=== PATIENT | male | born 1955 | race African-American/Black ===

== ENCOUNTER → 2016-06-26 | Outpatient (CLI) | payer OTHER, MEDICAID ==
[2016-04-06 05:59] VITALS: BP 135/82
--- NOTE | 2016-06-26 19:29 | RAD ---
HISTORY: neck pain Study: C-spine series Comparison: None Findings: There is mild to moderate disc space narrowing throughout with large marginal osteophytes throughout the lower cervical region. No fracture or subluxation is seen. The atlantoaxial joint and preverteb ral soft tissues are normal. IMPRESSION: Moderate degenerative disk changes throughout the mid and lower cervical spine with no acute bony ab normality seen. Reported By:
== END ==
LOC: RAD 15:21
PROVIDERS: ATTEND Nurse Practitioner Family
DX: M54.2 Cervicalgia (principal)
CPT/HCPCS: 72040

== ENCOUNTER → 2016-07-02 | Outpatient (CLI) | payer OTHER, MEDICAID ==
[2016-04-06 05:59] VITALS: BP 135/82
--- NOTE | 2016-07-02 13:27 | RAD ---
HISTORY: Left shoulder pain and stiffness Study: Left shoulder three view Comparison: November 03, 2014 Findings: There is deformity of the distal clavicle likely due to an old healed fracture. 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 The scapula, proximal humerus, and left upper ri bs are intact. There is degenerative joint disease in the glenohumeral joint. IMPRESSION: Old posttraumatic changes distal clavicle, a chromium Degenerative joint disease glenohumeral joint Reported By:
== END ==
LOC: RAD 11:03
PROVIDERS: ATTEND Nurse Practitioner Family
DX: M25.512 Pain in left shoulder (principal); M19.012 Primary osteoarthritis, left shoulder
CPT/HCPCS: 73030

== ENCOUNTER 2016-08-15 08:25 | Emergency (ER) | payer OTHER, MEDICAID ==
[2016-08-15 08:35] VITALS: BP 141/80; BMI 21.2
--- NOTE | 2016-08-15 08:54 | DR.GENAD ---
HPI - PCP Primary Care Physician: KE - HPI Comment HPI Comment: ABDOMEN HURTING AND PATIENT IS ATAXIC FOR 5 DAYS. WORSE TODAY. NO FEVER. - Complaint/Symptoms Chief Complaint Doctors Comments: ABDOMINAL PAIN Chief Complaint:: MY STOMACH HAS BEEN HURTING FOR 5 DAYS SINCE BIRTHDAY DEMOCRAT WHERE I DRANK SOME FRUIT PUNCH. JUST HURTS. NO N/V WITH STOMACH - Nurses notes reviewed Nurses Notes Review: Yes - Source History Provided: Patient - Mode of Arrival Mode of Arrival: Ambulatory - Timing Onset of Chief Complaint: 08/10/16 Came on: Suddenly - Duration Duration: Constant Duration: Days - Severity Severity: Moderate PMH - PMH Past Medical History: Yes Past Medical History: Seizures Past Surgical History: Yes Surgical History: Ortho Surgery - Family History History of Family Medical Conditions: Yes Family Medical History: [place], Coronary Artery Disease, Heart Failure, Hypertension - Social History Does patient currently use any type of tobacco product: Yes Have you used tobacco products in the last 12 months: Yes Type of Tobacco Use: Smokeless How many years tobacco product used: 20 Does any household member use tobacco: Yes Alcohol Use: None Do you use any recreational Drugs:: No Lives With: Family Lives Where: Home - infectious screening In the last 2 months have you had wt loss of >10#?: NO Have you had fever, night sweats or hemotysis?: No Have you traveled outside the country in the last 6 months?: No Isolation: Standard ROS - Review of Systems Constitutional: No Symptoms Reported Eyes: No Symptoms Reported ENTM: No Symptoms Reported Respiratoy: No Symptoms Reported Cardiovascular: No Symptoms Reported Genitourinary: No Symptoms Reported Neurological: No Symptoms Reported Musculoskeletal: No Symptoms Reported Integumentary: No Symptoms Reported Hematologic/Lymphatic: No Symptoms Reported Endocrine: No Symptoms Reported All Other Systems: Reviewed and Negative PE - Vital Signs Vitals: Temperature 97.3 F Pulse Rate 73 Respiratory Rate 19 Blood Pressure 141/80 O2 Sat by Pulse Oximetry 98 - General Limitations: No Limitations General Appearance: Alert - Head Head Exam: Normal Inspection - Eyes Eye exam: Normal Appearance - ENT ENT Exam: Normal External Ear Exam External Ear Exam: Normal External Inspection TM/Canal Exam: Bilateral Normal Nose Exam: Normal Nose Exam Mouth Exam: Normal Inspection Throat Exam: Normal Inspection - Neck Neck Exam: Trachea Midline - Chest Chest Inspection: Symmetric Chest Wall Rise - Respiratory Respiratory Exam: Normal Lung Sounds Bilat Respiratory Exam: Bilateral Clear to Auscultation - Cardiovascular Cardiovascular Exam: Regular Rate, Normal Rhythm, Normal Heart Sounds - Extremities Extremities Exam: Normal Inspection - Back Back Exam: Normal Inspection - Neurologic Neurological Exam: Alert, Oriented X3 - Psychiatric Psychiatric Exam: Normal Affect, Normal Mood - Skin Skin Exam: Normal Color MDM - Additional Information Additional Information Obtained From: Old Records (PAIN) - Differential Diagnosis Differential Diagnosis: ATAXIAN ABDOMINAL PAIN, DILANTIN TOXICITY, GASTRITIS, GASTRENTERITIS Course - Treatment Treatment: SEE ORDER. - Reevaluation 1st: Resolved - Education/Counseling Education/Counseling: Patient, Education Educated On: Diagnosis, Needs for Follow Up ROR - Labs Reviewed Laboratory Results Reviewed?: Yes Result Diagrams: 08/15/16 09:10 08/15/16 09:10 Laboratory: WBC 3.9 X10^3/uL (3.6-10.0) 08/15/16 09:10 RBC 4.34 X10^6/uL (4.7-6.0) L 08/15/16 09:10 Hgb 11.6 g/dL (13.5-18.0) L 08/15/16 09:10 Hct 34.7 % (42.0-54.0) L 08/15/16 09:10 MCV 79.9 fL (80.0-100.0) L 08/15/16 09:10 MCH 26.6 pg (27.0-34.0) L 08/15/16 09:10 MCHC 33.3 g/dL (33.0-35.0) 08/15/16 09:10 RDW 15.1 % (11.6-16.5) 08/15/16 09:10 Plt Count 185 X10^3/uL (150.0-450.0) 08/15/16 09:10 MPV 8.8 fL (7.4-11.0) 08/15/16 09:10 Neut % 48.5 % (42.0-75.0) 08/15/16 09:10 Lymph % 37.1 % (21.0-51.0) 08/15/16 09:10 [place] % 8.8 % (0.0-13.0) 08/15/16 09:10 Eos % 4.7 % (0.9-2.9) H 08/15/16 09:10 Baso % 0.9 % (0.2-1.0) 08/15/16 09:10 Neut # 1.9 x10^3/uL (2.2-4.8) L 08/15/16 09:10 Lymph # 1.4 X10^3/uL (1.3-2.9) 08/15/16 09:10 [place] # 0.3 x10^3/uL (0.3-0.8) 08/15/16 09:10 Eos # 0.2 x10^3/uL (0.0-0.2) 08/15/16 09:10 Baso # 0.0 X10^3/uL (0.0-0.1) 08/15/16 09:10 Absolute Nucleated RBC 0.1 /100WBC 08/15/16 09:10 Sodium 142 mmol/L (136-145) 08/15/16 09:10 Corrected Sodium TNP 08/15/16 09:10 Potassium 3.6 mmol/L (3.5-5.1) 08/15/16 09:10 Chloride 105 mmol/L (98-107) 08/15/16 09:10 Carbon Dioxide 29.4 mmol/L (21-32) 08/15/16 09:10 BUN 10 mg/dL (7-18) 08/15/16 09:10 Creatinine 1.07 mg/dL (0.70-1.30) 08/15/16 09:10 Est GFR (MDRD) Af Amer > 60 (>60) 08/15/16 09:10 Est GFR (MDRD) Non-Af > 60 (>60) 08/15/16 09:10 Glucose 95 mg/dL (65-99) 08/15/16 09:10 Calcium 7.9 mg/dL (8.5-10.1) L 08/15/16 09:10 Corrected Calcium TNP 08/15/16 09:10 Total Bilirubin 0.20 mg/dL (0.2-1.0) 08/15/16 09:10 AST 32 Units/L (15-37) 08/15/16 09:10 ALT 34 Units/L (12-78) 08/15/16 09:10 Alkaline Phosphatase 96 Units/L (46-116) 08/15/16 09:10 Total Protein 7.4 g/dL (6.4-8.2) 08/15/16 09:10 Albumin 3.7 g/dL (3.4-5.0) 08/15/16 09:10 Globulin 3.7 g/dL (2.5-4.5) 08/15/16 09:10 Albumin/Globulin Ratio 1.0 Ratio (1.1-2.1) L 08/15/16 09:10 Amylase 79 Units/L (25-115) 08/15/16 09:10 Lipase 76 Units/L (73-393) 08/15/16 09:10 Specimen Type Clean catch urine 08/15/16 09:37 Urine Color Yellow (YELLOW) 08/15/16 09:37 Urine Appearance Clear (CLEAR) 08/15/16 09:37 Urine pH 6.5 (5.0 - 8.0) 08/15/16 09:37 Ur Specific [place] 1.005 (1.000-1.030) 08/15/16 09:37 Urine Protein Negative (NEGATIVE) 08/15/16 09:37 Urine Glucose (UA) Negative (NEGATIVE) 08/15/16 09:37 Urine Ketones Negative (NEGATIVE) 08/15/16 09:37 Urine Occult Blood Negative (NEGATIVE) 08/15/16 09:37 Urine Nitrite Negative (NEGATIVE) 08/15/16 09:37 Urine Bilirubin Negative (NEGATIVE) 08/15/16 09:37 Urine Urobilinogen Normal (NORMAL) 08/15/16 09:37 Ur Leukocyte Esterase Negative (NEGATIVE) 08/15/16 09:37 Urine RBC 0-2 /HPF (NEGATIVE) 08/15/16 09:37 Urine WBC 0-2 /HPF (NEGATIVE) 08/15/16 09:37 Ur Squamous Epith Cells Negative /HPF (NEGATIVE) 08/15/16 09:37 Urine Bacteria Negative /HPF (NEGATIVE) 08/15/16 09:37 Ur Culture Indicated? No/not indicated 08/15/16 09:37 Phenytoin 31.1 ug/mL (10-20) H* 08/15/16 09:10 Phenobarbital 23.9 ug/mL (15-40) 08/15/16 09:10 H. pylori IgG Antibody Positive (NEGATIVE) A 08/15/16 09:40 - XRAY XRAY Interpreted by: Radiologist XRAY Findings: REPORT DISCUSS WITH PATIENT. - Diagnosis Discharge Problem: Helicobacter positive gastritis Dilantin toxicity Qualifiers: Encounter type: initial encounter Injury intent: accidental or unintentional Qualified Code(s): T42.0X1A - Poisoning by hydantoin derivatives, accidental ( unintentional), initial encounter Abdominal pain Qualifiers: Abdominal location: generalized Qualified Code(s): R10.84 - Generalized abdominal pain - Discharge Plan Disposition: HOME, SELF-CARE Condition: Stable Prescriptions: Ranitidine HCl [ZANTAC TAB 150 MG *] 150 mg PO BID #60 tab - Follow ups/Referrals Follow ups/Referrals: MILAGRO ABDALLA [Primary Care Provider] - 3 days - Instructions Instructions: Phenytoin Toxicity, Helicobacter Pylori Antibodies Test, Gastritis, Adult, [id number] Additional Instructions: RETURN TO ED IF WORSE. RETURN TO ED ON 08/17/2016 FOR DILANTIN RECHECK. HOLD DILANTIN TILL IT IS RECHECK IN ED. HAVE YOUR DR. TO TREAT YOU FOR H PYLORI IN THE OFFICE.
[2016-08-15 09:42] LABS: ALANINE AMINOTRANSFERASE 34 Units/L (12-78); ALBUMIN 3.7 g/dL (3.4-5.0); ALKALINE PHOSPHATASE 96 Units/L (46-116); ASPARTATE AMINO TRANSFERASE 32 Units/L (15-37); BLOOD UREA NITROGEN 10 mg/dL (7-18); CALCIUM 7.9 mg/dL (8.5-10.1); CARBON DIOXIDE 29.4 mmol/L (21-32); CHLORIDE 105 mmol/L (98-107); CREATININE 1.07 mg/dL (0.70-1.30); GLUCOSE 95 mg/dL (65-99); SODIUM 142 mmol/L (136-145); TOTAL PROTEIN 7.4 g/dL (6.4-8.2); eGFR BLACK RACES > 60 (>60); eGFR NON BLACK RACES > 60 (>60)
[2016-08-15 09:44] LABS: BASOPHILS % (AUTO) 0.9 % (0.2-1.0); EOSINOPHILS # (AUTO) 0.2 x10^3/uL (0.0-0.2); EOSINOPHILS % (AUTO) 4.7 % (0.9-2.9); HEMATOCRIT 34.7 % (42.0-54.0); HEMOGLOBIN 11.6 g/dL (13.5-18.0); LYMPHOCYTES # (AUTO) 1.4 X10^3/uL (1.3-2.9); LYMPHOCYTES % (AUTO) 37.1 % (21.0-51.0); MEAN CORPUSCULAR HEMOGLOBIN 26.6 pg (27.0-34.0); MEAN CORPUSCULAR HGB CONC 33.3 g/dL (33.0-35.0); MEAN CORPUSCULAR VOLUME 79.9 fL (80.0-100.0); MEAN PLATELET VOLUME 8.8 fL (7.4-11.0); MONOCYTES # (AUTO) 0.3 x10^3/uL (0.3-0.8); MONOCYTES % (AUTO) 8.8 % (0.0-13.0); NEUTROPHILS # (AUTO) 1.9 x10^3/uL (2.2-4.8); NEUTROPHILS % (AUTO) 48.5 % (42.0-75.0); PLATELET COUNT 185 X10^3/uL (150.0-450.0); RED BLOOD COUNT 4.34 X10^6/uL (4.7-6.0); RED CELL DISTRIBUTION WIDTH 15.1 % (11.6-16.5); WHITE BLOOD COUNT 3.9 X10^3/uL (3.6-10.0)
[2016-08-15 09:51] LABS: BILIRUBIN,URINE NEGATIVE (NEGATIVE); BLOOD/HEMOGLOBIN,URINE NEGATIVE (NEGATIVE); GLUCOSE, URINE NEGATIVE (NEGATIVE); KETONES,URINE NEGATIVE (NEGATIVE); LEUKOCYTE ESTERASE ,URINE NEGATIVE (NEGATIVE); NITRITES,URINE NEGATIVE (NEGATIVE); PH,URINE 6.5 (5.0 - 8.0); PROTEIN,URINE NEGATIVE (NEGATIVE); UROBILINOGEN,URINE NORMAL (NORMAL)
[2016-08-15] MEDS ORDERED: PEPCID TAB 20 MG PO ONE (10:14)
[2016-08-15 10:15] LABS: APPEARANCE,URINE CLEAR (CLEAR); COLOR,URINE YELLOW (YELLOW)
[2016-08-15 10:16] LABS: BACTERIA,URINE NEGATIVE /HPF (NEGATIVE); RBC,URINE 0-2 /HPF (NEGATIVE); SQUAMOUS EPITHELIAL CELL,UR NEGATIVE /HPF (NEGATIVE)
[2016-08-15] MEDS ORDERED: PEPCID TAB 20 MG ONE (10:16)
--- NOTE | 2016-08-15 10:50 | RAD ---
HISTORY: Abdominal pain Study: Flat and upright abdomen, PA chest Comparison: None Findings: There is a dilated loop of bowel within the mid abdomen possibly representing sigmoid colon. There i s, however, no proximal colonic dilatation or significant small bowel dilatation. There is a moderat sharlene large amount of stool within the right colon. No pneumoperitoneum is identified. No abnormal mas ses or abnormal calcifications are identified. The chest is clear. Extensive postsurgical and posttr aumatic changes are present in the right hemipelvis. IMPRESSION: Nonspecific bowel gas pattern Lungs clear Reported By:
[2016-08-15] MEDS ORDERED: NS 1000 ML 1,000 ML ONE (11:56)
== END 2016-08-15 12:31 | disposition home or self-care (01) ==
LOC: ER 08:39
DX: R10.84 Generalized abdominal pain (principal); B96.81 Helicobacter pylori [H. pylori] as the cause of diseases classified elsewhere; T42.0X1A Poisoning by hydantoin derivatives, accidental (unintentional), initial encounter
CPT/HCPCS: 36415; 74022; 80053; 80184; 80185; 81001; 82150; 83690; 85025; 86677; 96365; 99282; 99283; A4222

== ENCOUNTER 2016-08-18 08:50 | Emergency (ER) | payer OTHER, MEDICAID ==
[2016-08-18 08:56] VITALS: BP 116/80; BMI 21.2
--- NOTE | 2016-08-18 09:09 | DR.GENAD ---
HPI - PCP Primary Care Physician: nfd - Complaint/Symptoms Chief Complaint Doctors Comments: I agree with statement. Patient states that this is the second time that he has had to come to the ED for dizziness, he thinks that the women he plans to is trying to kill him that why he is dizzy. Chief Complaint:: patient stated he was a t the club and was drinking some punch and he started feeling bad. about 8 hours ago - Source History Provided: Patient - Mode of Arrival Mode of Arrival: Ambulatory - Timing Onset of Chief Complaint: 08/17/16 PMH - PMH Past Medical History: Yes Past Medical History: Seizures Past Surgical History: Yes Surgical History: Ortho Surgery - Family History History of Family Medical Conditions: Yes Family Medical History: [place], Coronary Artery Disease, Heart Failure, Hypertension - Social History Does patient currently use any type of tobacco product: No Have you used tobacco products in the last 12 months: No Type of Tobacco Use: None Does any household member use tobacco: No Alcohol Use: None Do you use any recreational Drugs:: No Lives With: Family Lives Where: Home - infectious screening In the last 2 months have you had wt loss of >10#?: NO Have you had fever, night sweats or hemotysis?: No Have you traveled outside the country in the last 6 months?: No Isolation: Standard ROS - Review of Systems Eyes: No Symptoms Reported ENTM: No Symptoms Reported Respiratoy: No Symptoms Reported Cardiovascular: No Symptoms Reported Gastrointestinal/Abdominal: No Symptoms Reported Genitourinary: No Symptoms Reported Neurological: No Symptoms Reported Musculoskeletal: No Symptoms Reported Integumentary: No Symptoms Reported Hematologic/Lymphatic: No Symptoms Reported Endocrine: No Symptoms Reported Psychiatric: No Symptoms Reported All Other Systems: Reviewed and Negative PE - Vital Signs Vitals: Temperature 98.7 F Pulse Rate 80 Respiratory Rate 16 Blood Pressure 116/80 O2 Sat by Pulse Oximetry 100 - General General Appearance: Alert, In No Apparent Distress, Appears Intoxicated - Head Head Exam: Normal Inspection, Atraumatic - Eyes Eye exam: Normal Appearance, PERRL, EOMI - ENT ENT Exam: Normal Exam External Ear Exam: Normal External Inspection TM/Canal Exam: Bilateral Normal Nose Exam: Normal Nose Exam Mouth Exam: Normal Inspection Throat Exam: Normal Inspection - Neck Neck Exam: Normal Inspection, Full ROM - Chest Chest Inspection: Normal Inspection - Respiratory Respiratory Exam: Normal Lung Sounds Bilat Respiratory Exam: Bilateral Clear to Auscultation - Cardiovascular Cardiovascular Exam: Regular Rate, Normal Rhythm - Abdominal Exam Abdominal Exam: Normal Inspection, Normal Bowel Sounds Abdominal Tenderness: negative: RUQ, RLQ, LUQ, LLQ, Epigastrium, Suprapubic, Diffuse, Mild, Moderate, Severe, Other - Extremities Extremities Exam: Normal Inspection, Full ROM - Neurologic Neurological Exam: Alert, Oriented X3, CN II-XII Intact - Psychiatric Psychiatric Exam: Normal Affect - Skin Skin Exam: Warm, Dry Course - Reevaluation 1st: Improved ROR - Labs Reviewed Laboratory Results Reviewed?: Yes (low potassium) Result Diagrams: 08/18/16 09:18 08/18/16 09:18 Laboratory: WBC 3.4 X10^3/uL (3.6-10.0) L 08/18/16 09:18 RBC 4.03 X10^6/uL (4.7-6.0) L 08/18/16 09:18 Hgb 10.7 g/dL (13.5-18.0) L 08/18/16 09:18 Hct 31.6 % (42.0-54.0) L 08/18/16 09:18 MCV 78.4 fL (80.0-100.0) L 08/18/16 09:18 MCH 26.6 pg (27.0-34.0) L 08/18/16 09:18 MCHC 34.0 g/dL (33.0-35.0) 08/18/16 09:18 RDW 14.9 % (11.6-16.5) 08/18/16 09:18 Plt Count 175 X10^3/uL (150.0-450.0) 08/18/16 09:18 MPV 8.3 fL (7.4-11.0) 08/18/16 09:18 Neut % 43.3 % (42.0-75.0) 08/18/16 09:18 Lymph % 42.1 % (21.0-51.0) 08/18/16 09:18 [place] % 8.8 % (0.0-13.0) 08/18/16 09:18 Eos % 4.7 % (0.9-2.9) H 08/18/16 09:18 Baso % 1.1 % (0.2-1.0) H 08/18/16 09:18 Neut # 1.5 x10^3/uL (2.2-4.8) L 08/18/16 09:18 Lymph # 1.4 X10^3/uL (1.3-2.9) 08/18/16 09:18 [place] # 0.3 x10^3/uL (0.3-0.8) 08/18/16 09:18 Eos # 0.2 x10^3/uL (0.0-0.2) 08/18/16 09:18 Baso # 0.0 X10^3/uL (0.0-0.1) 08/18/16 09:18 Absolute Nucleated RBC 0.0 /100WBC 08/18/16 09:18 Sodium 141 mmol/L (136-145) 08/18/16 09:18 Corrected Sodium 141 mmol/L (136-145) 08/18/16 09:18 Potassium 3.2 mmol/L (3.5-5.1) L 08/18/16 09:18 Chloride 104 mmol/L (98-107) 08/18/16 09:18 Carbon Dioxide 28.2 mmol/L (21-32) 08/18/16 09:18 BUN 3 mg/dL (7-18) L 08/18/16 09:18 Creatinine 0.91 mg/dL (0.70-1.30) 08/18/16 09:18 Est GFR (MDRD) Af Amer > 60 (>60) 08/18/16 09:18 Est GFR (MDRD) Non-Af > 60 (>60) 08/18/16 09:18 Glucose 114 mg/dL (65-99) H 08/18/16 09:18 Calcium 7.6 mg/dL (8.5-10.1) L 08/18/16 09:18 Specimen Type Clean catch urine 08/18/16 09:18 Urine Color Yellow (YELLOW) 08/18/16 09:18 Urine Appearance Clear (CLEAR) 08/18/16 09:18 Urine pH 6.0 (5.0 - 8.0) 08/18/16 09:18 Ur Specific [place] 1.010 (1.000-1.030) 08/18/16 09:18 Urine Protein Negative (NEGATIVE) 08/18/16 09:18 Urine Glucose (UA) Negative (NEGATIVE) 08/18/16 09:18 Urine Ketones Negative (NEGATIVE) 08/18/16 09:18 Urine Occult Blood Negative (NEGATIVE) 08/18/16 09:18 Urine Nitrite Negative (NEGATIVE) 08/18/16 09:18 Urine Bilirubin Negative (NEGATIVE) 08/18/16 09:18 Urine Urobilinogen Normal (NORMAL) 08/18/16 09:18 Ur Leukocyte Esterase Negative (NEGATIVE) 08/18/16 09:18 Urine RBC Negative /HPF (NEGATIVE) 08/18/16 09:18 Urine WBC Rare /HPF (NEGATIVE) 08/18/16 09:18 Ur Squamous Epith Cells Rare /HPF (NEGATIVE) 08/18/16 09:18 Urine Bacteria Negative /HPF (NEGATIVE) 08/18/16 09:18 Ur Culture Indicated? No/not indicated 08/18/16 09:18 Urine Opiates Screen Negative (NEG=<300) 08/18/16 09:14 Urine Methadone Screen Negative (NEG=<300) 08/18/16 09:14 Ur Barbiturates Screen Positive (NEG=<200) 08/18/16 09:14 Phenytoin 16.2 ug/mL (10-20) 08/18/16 09:18 Ur Phencyclidine Scrn Negative (NEG=<25) 08/18/16 09:14 Ur Amphetamines Screen Negative (NEG=<1000) 08/18/16 09:14 U Benzodiazepines Scrn Negative (NEG=<200) 08/18/16 09:14 Urine Cocaine Screen Negative (NEG=<300) 08/18/16 09:14 U Marijuana (THC) Screen Negative (NEG=<50) 08/18/16 09:14 - Diagnosis Discharge Problem: Hypokalemia - Discharge Plan Condition: Stable - Follow ups/Referrals Follow ups/Referrals: NFD,None [Primary Care Provider] - 3 days - Instructions
[2016-08-18 09:29] LABS: BASOPHILS % (AUTO) 1.1 % (0.2-1.0); EOSINOPHILS # (AUTO) 0.2 x10^3/uL (0.0-0.2); EOSINOPHILS % (AUTO) 4.7 % (0.9-2.9); HEMATOCRIT 31.6 % (42.0-54.0); HEMOGLOBIN 10.7 g/dL (13.5-18.0); LYMPHOCYTES # (AUTO) 1.4 X10^3/uL (1.3-2.9); LYMPHOCYTES % (AUTO) 42.1 % (21.0-51.0); MEAN CORPUSCULAR HEMOGLOBIN 26.6 pg (27.0-34.0); MEAN CORPUSCULAR VOLUME 78.4 fL (80.0-100.0); MEAN PLATELET VOLUME 8.3 fL (7.4-11.0); MONOCYTES # (AUTO) 0.3 x10^3/uL (0.3-0.8); MONOCYTES % (AUTO) 8.8 % (0.0-13.0); NEUTROPHILS # (AUTO) 1.5 x10^3/uL (2.2-4.8); NEUTROPHILS % (AUTO) 43.3 % (42.0-75.0); PLATELET COUNT 175 X10^3/uL (150.0-450.0); RED BLOOD COUNT 4.03 X10^6/uL (4.7-6.0); RED CELL DISTRIBUTION WIDTH 14.9 % (11.6-16.5); WHITE BLOOD COUNT 3.4 X10^3/uL (3.6-10.0)
[2016-08-18 09:35] LABS: BILIRUBIN,URINE NEGATIVE (NEGATIVE); BLOOD UREA NITROGEN 3 mg/dL (7-18); BLOOD/HEMOGLOBIN,URINE NEGATIVE (NEGATIVE); CALCIUM 7.6 mg/dL (8.5-10.1); CARBON DIOXIDE 28.2 mmol/L (21-32); CHLORIDE 104 mmol/L (98-107); COR NA(FOR HYPERGLY) 141 mmol/L (136-145); CREATININE 0.91 mg/dL (0.70-1.30); GLUCOSE 114 mg/dL (65-99); GLUCOSE, URINE NEGATIVE (NEGATIVE); KETONES,URINE NEGATIVE (NEGATIVE); LEUKOCYTE ESTERASE ,URINE NEGATIVE (NEGATIVE); NITRITES,URINE NEGATIVE (NEGATIVE); PROTEIN,URINE NEGATIVE (NEGATIVE); SODIUM 141 mmol/L (136-145); UROBILINOGEN,URINE NORMAL (NORMAL); eGFR BLACK RACES > 60 (>60); eGFR NON BLACK RACES > 60 (>60)
[2016-08-18 09:42] LABS: APPEARANCE,URINE CLEAR (CLEAR); BACTERIA,URINE NEGATIVE /HPF (NEGATIVE); COLOR,URINE YELLOW (YELLOW); RBC,URINE NEGATIVE /HPF (NEGATIVE); SQUAMOUS EPITHELIAL CELL,UR RARE /HPF (NEGATIVE)
[2016-08-18] MEDS ORDERED: K-LYTE EFFERVESCENT PO STA (10:11)
[2016-08-18] MEDS ORDERED: K-LYTE EFFERVESCENT ONE (10:13)
== END 2016-08-18 11:11 | disposition home or self-care (01) ==
LOC: ER 08:55
DX: E87.6 Hypokalemia (principal); Z72.89 Other problems related to lifestyle; T51.0X4A Toxic effect of ethanol, undetermined, initial encounter; Y90.6 Blood alcohol level of 120-199 mg/100 ml
CPT/HCPCS: 36415; 80048; 80185; 80307; 80320; 81001; 85025; 99282; 99283; G0434; G6040

== ENCOUNTER 2016-09-15 07:57 | Emergency (ER) | payer OTHER, MEDICAID ==
[2016-09-15 08:07] VITALS: BP 117/81
--- NOTE | 2016-09-15 08:30 | DR.EYE ---
HPI - Time Seen Time seen: 08:30 - PCP Primary Care Physician: OSMAN ABDALLA - Complaint Chief Complaint Doctors Comments: Patient reports that it feels like something is in his right eye. Denies any pain or trauma. Denies any discharge or photophobia. Chief Complaint:: PT STATES " FEELS LIKE SOMETHING IS IN MY EYE" - Source History Provided: Patient - Mode of arrival Mode of Arrival: Ambulatory - Timing Onset of Chief Complaint: 09/14/16 PMH - PMH Past Medical History: Yes Past Medical History: Seizures Past Surgical History: Yes Surgical History: Ortho Surgery - Family History History of Family Medical Conditions: Yes Family Medical History: [place], Coronary Artery Disease, Heart Failure, Hypertension - Social History Does patient currently use any type of tobacco product: No Have you used tobacco products in the last 12 months: No Type of Tobacco Use: None Does any household member use tobacco: No Alcohol Use: None Do you use any recreational Drugs:: No Lives With: Family Lives Where: Home - infectious screening In the last 2 months have you had wt loss of >10#?: NO Have you had fever, night sweats or hemotysis?: No Have you traveled outside the country in the last 6 months?: No ROS - Review of Systems Eyes: See HPI ENTM: No Symptoms Reported Respiratoy: No Symptoms Reported Cardiovascular: No Symptoms Reported Gastrointestinal/Abdominal: No Symptoms Reported Genitourinary: No Symptoms Reported Neurological: No Symptoms Reported, Headache Integumentary: No Symptoms Reported Hematologic/Lymphatic: No Symptoms Reported Endocrine: No Symptoms Reported Psychiatric: No Symptoms Reported All Other Systems: Reviewed and Negative PE - Vital Signs Vitals: Temperature 98.6 F Pulse Rate 63 Respiratory Rate 18 Blood Pressure 117/81 O2 Sat by Pulse Oximetry 99 - General Limitations: No Limitations General Appearance: Alert, In No Apparent Distress - Head Head Exam: Normal Inspection, Atraumatic - Eyes Eye exam: EOMI, Other (cararact of left pupil) Eyelids: Normal Inspection: Bilateral Pupils: Reactive: Left (cataract) Sclera/Conjunctival: Normal Inspection: Bilateral Anterior Chamber: Normal Inspection: Bilateral Posterior Chamber: Deferred: Bilateral - ENT ENT Exam: Normal Exam External Ear Exam: Normal External Inspection TM/Canal Exam: Bilateral Normal Nose Exam: Normal Nose Exam Mouth Exam: Normal Inspection Throat Exam: Normal Inspection - Neck Neck Exam: Normal Inspection - Chest Chest Inspection: Normal Inspection - Respiratory Respiratory Exam: Normal Lung Sounds Bilat Respiratory Exam: Bilateral Clear to Auscultation - Cardiovascular Cardiovascular Exam: Regular Rate - Abdominal Exam Abdominal Exam: Normal Inspection Abdominal Tenderness: negative: RUQ, RLQ, LUQ, LLQ, Epigastrium, Suprapubic, Diffuse, Mild, Moderate, Severe, Other - Extremities Extremities Exam: Normal Inspection - Back Back Exam: Normal Inspection, Full ROM - Neurologic Neurological Exam: Alert, Oriented X3, CN II-XII Intact - Psychiatric Psychiatric Exam: Normal Affect, Normal Mood - Skin Skin Exam: Warm, Dry, Intact Distribution: Generalized, Involves Palms/Soles Description: Size Procedures - Procedure Comments Procedures: visual acuity of right 20/15, left eye 0 - Diagnosis Discharge Problem: Cataract, left eye Qualifiers: Cataract type: unspecified Qualified Code(s): H26.9 - Unspecified cataract Conjunctivitis Qualifiers: Conjunctivitis type: acute Acute conjunctivitis type: unspecified Laterality: right Qualified Code(s): H10.31 - Unspecified acute conjunctivitis, right eye - Discharge Plan Condition: Stable - Follow ups/Referrals Follow ups/Referrals: MILAGRO ABDALLA [Primary Care Provider] - 3 days - Instructions
== END 2016-09-15 08:48 | disposition home or self-care (01) ==
LOC: ER 08:11
DX: H26.8 Other specified cataract (principal); H10.31 Unspecified acute conjunctivitis, right eye
CPT/HCPCS: 99281; 99282

== ENCOUNTER 2016-10-06 12:20 | Emergency (ER) | payer OTHER, MEDICAID ==
[2016-10-06 12:29] VITALS: BP 123/84; BMI 21.2
[2016-10-06] MEDS ORDERED: TORADOL 60 MG VIAL IM ONE (12:44)
[2016-10-06] MEDS ORDERED: TORADOL 60 MG VIAL ONE (12:45)
--- NOTE | 2016-10-06 12:46 | DR.GENAD ---
HPI - PCP Primary Care Physician: jethro - Complaint/Symptoms Chief Complaint Doctors Comments: Patiant states that his right hip and right knee hurt since this morning. Denies trauma. "I might be out of my medicine". Chief Complaint:: right leg pain in his knee and hip that started this morning. - Source History Provided: Patient - Mode of Arrival Mode of Arrival: Ambulatory - Timing Onset of Chief Complaint: 10/06/16 PMH - PMH Past Medical History: Yes Past Medical History: Seizures Past Surgical History: Yes Surgical History: Ortho Surgery - Family History History of Family Medical Conditions: No Family Medical History: [place], Coronary Artery Disease, Heart Failure, Hypertension - Social History Does patient currently use any type of tobacco product: No Have you used tobacco products in the last 12 months: No Type of Tobacco Use: None Does any household member use tobacco: No Alcohol Use: None Do you use any recreational Drugs:: No Lives With: Family Lives Where: Home - infectious screening In the last 2 months have you had wt loss of >10#?: NO Have you had fever, night sweats or hemotysis?: No Have you traveled outside the country in the last 6 months?: No Isolation: Standard ROS - Review of Systems Eyes: No Symptoms Reported ENTM: No Symptoms Reported Respiratoy: No Symptoms Reported Cardiovascular: No Symptoms Reported Gastrointestinal/Abdominal: No Symptoms Reported Genitourinary: No Symptoms Reported Neurological: No Symptoms Reported Musculoskeletal: Hip, Knee (right hip and right knee pain) Integumentary: No Symptoms Reported Hematologic/Lymphatic: No Symptoms Reported Endocrine: No Symptoms Reported Psychiatric: No Symptoms Reported All Other Systems: Reviewed and Negative PE - Vital Signs Vitals: Temperature 98.9 F Pulse Rate 89 Respiratory Rate 16 Blood Pressure 123/84 O2 Sat by Pulse Oximetry 100 - General Limitations: No Limitations General Appearance: Alert, In No Apparent Distress - Head Head Exam: Normal Inspection - Eyes Eye exam: Normal Appearance, PERRL, EOMI - ENT External Ear Exam: Normal External Inspection TM/Canal Exam: Bilateral Normal Nose Exam: Normal Nose Exam Mouth Exam: Normal Inspection Throat Exam: Normal Inspection - Neck Neck Exam: Normal Inspection - Chest Chest Inspection: Normal Inspection - Respiratory Respiratory Exam: Normal Lung Sounds Bilat Respiratory Exam: Bilateral Clear to Auscultation - Cardiovascular Cardiovascular Exam: Regular Rate, Normal Rhythm - Abdominal Exam Abdominal Exam: Normal Inspection, Normal Bowel Sounds Abdominal Tenderness: negative: RUQ, RLQ, LUQ, LLQ, Epigastrium, Suprapubic, Diffuse, Mild, Moderate, Severe, Other - Extremities Extremities Exam: Normal Inspection, Full ROM - Back Back Exam: Normal Inspection - Neurologic Neurological Exam: Alert, Oriented X3, CN II-XII Intact - Psychiatric Psychiatric Exam: Normal Affect, Depressed - Skin Skin Exam: Warm, Dry, Intact Course - Reevaluation 1st: Improved - Diagnosis Discharge Problem: Hip arthritis, Arthritis of knee - Discharge Plan Condition: Stable - Follow ups/Referrals Follow ups/Referrals: MILAGRO ABDALLA [Primary Care Provider] - 3 days - Instructions
== END 2016-10-06 13:02 | disposition home or self-care (01) ==
LOC: ER 12:25
DX: M16.11 Unilateral primary osteoarthritis, right hip (principal); M17.11 Unilateral primary osteoarthritis, right knee
CPT/HCPCS: 96372; 99282; J1885

== ENCOUNTER 2016-10-22 23:16 | Emergency (ER) | payer OTHER, MEDICAID ==
[2016-10-22 23:22] VITALS: BP 105/70; BMI 21.2
--- NOTE | 2016-10-22 23:47 | DR.GENAD ---
HPI - PCP Primary Care Physician: [email or web address] - Complaint/Symptoms Chief Complaint Doctors Comments: [place] like he was staggering due to taking extra dose of his medicine. He is not sure of all his medicines. Chief Complaint:: thinks he took the wrong pill pain in his right knee - Nurses notes reviewed Nurses Notes Review: Yes - Source History Provided: Patient - Mode of Arrival Mode of Arrival: Ambulatory - Timing Onset of Chief Complaint: 10/21/16 Came on: Gradually - Duration Duration: Intermittent Duration: Hours - Location Location: generalized - Severity Severity: Mild - Modifying Factors Worsens:: unknown PMH - PMH Past Medical History: Yes Past Medical History: Seizures Past Surgical History: Yes Surgical History: Ortho Surgery - Family History History of Family Medical Conditions: Yes Family Medical History: [place], Coronary Artery Disease, Heart Failure, Hypertension - Social History Does patient currently use any type of tobacco product: No Have you used tobacco products in the last 12 months: No Type of Tobacco Use: Smokeless Does any household member use tobacco: No Alcohol Use: None Do you use any recreational Drugs:: No Lives With: Family Lives Where: Home - infectious screening In the last 2 months have you had wt loss of >10#?: NO Have you had fever, night sweats or hemotysis?: No Have you traveled outside the country in the last 6 months?: No Isolation: Standard ROS - Review of Systems Constitutional: No Symptoms Reported Eyes: No Symptoms Reported ENTM: No Symptoms Reported Respiratoy: No Symptoms Reported Cardiovascular: No Symptoms Reported Gastrointestinal/Abdominal: No Symptoms Reported Genitourinary: No Symptoms Reported Neurological: No Symptoms Reported Musculoskeletal: No Symptoms Reported (knee pain), Knee Integumentary: No Symptoms Reported Hematologic/Lymphatic: No Symptoms Reported Endocrine: No Symptoms Reported Psychiatric: No Symptoms Reported PE - Vital Signs Vitals: Temperature 98.6 F Pulse Rate 70 Respiratory Rate 16 Blood Pressure 105/70 O2 Sat by Pulse Oximetry 100 - General Limitations: No Limitations General Appearance: Alert, In No Apparent Distress - Head Head Exam: Normal Inspection - Eyes Eye exam: Normal Appearance, EOMI. negative: Scleral Icterus, Conjunctival Injection - ENT ENT Exam: Normal Exam - Neck Neck Exam: Normal Inspection, Full ROM, Trachea Midline - Chest Chest Inspection: Normal Inspection - Respiratory Respiratory Exam: Normal Lung Sounds Bilat. negative: Accessory Muscle Use, Respiratory Distress Respiratory Exam: Bilateral Clear to Auscultation - Cardiovascular Cardiovascular Exam: Regular Rate - Abdominal Exam Abdominal Exam: Normal Inspection, Normal Bowel Sounds, Soft. negative: Distention, Tenderness, Guarding - Extremities Extremities Exam: Normal Inspection, Full ROM - Back Back Exam: Normal Inspection, Full ROM - Psychiatric Psychiatric Exam: Normal Mood - Skin Skin Exam: Intact, Normal Color Course - Treatment Treatment: Due to patient not sure of medications will observe in ER to see if side effects occur. says no one at home to check medicines. 0020: patient came out of room saying he feels fine and wants to go. - Diagnosis Discharge Problem: Drug ingestion, accidental Qualifiers: Encounter type: initial encounter Qualified Code(s): T50.901A - Poisoning by unspecified drugs, medicaments and biological substances, accidental ( unintentional), initial encounter - Discharge Plan Condition: Stable - Follow ups/Referrals Follow ups/Referrals: NFD,None [Primary Care Provider] - 3 days - Instructions
== END 2016-10-23 00:25 | disposition home or self-care (01) ==
LOC: ER 23:30
DX: T50.901A Poisoning by unspecified drugs, medicaments and biological substances, accidental (unintentional), initial encounter (principal)
CPT/HCPCS: 99281; 99282

== ENCOUNTER → 2016-12-31 | Outpatient (CLI) | payer OTHER, MEDICAID ==
--- NOTE | 2016-12-31 10:29 | RAD ---
Examination: Bilateral hips, two views each History: Right hip pain Comparison reference: 11/11/2011 Findings: On the left, there is narrowing of the joint space. No fracture is seen. There is a nonacut e bone fragment adjacent to the lateral surface of the greater trochanter. This is essentially unchan ged. On the right, surgical fixation hardware is again noted at the floor of the acetabulum and media l pelvis. There is marked obliteration of the right hip joint space with deformity and sclerosis of t he femoral head. Extensive cystic changes noted in the femoral head and neck. No acute injury is demo nstrated. Impression: Mild DJD left hip. No change. On the right, there is marked osteoarthritic deformity and postsurgical Change. 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 Reported By:
== END ==
LOC: RAD 09:53
PROVIDERS: ATTEND Specialist
DX: M25.551 Pain in right hip (principal); M25.552 Pain in left hip; M16.12 Unilateral primary osteoarthritis, left hip
CPT/HCPCS: 73521

== ENCOUNTER → 2017-01-06 | Outpatient (CLI) | payer OTHER, MEDICAID ==
--- NOTE | 2017-01-07 07:39 | RAD ---
Examination: Right knee, two views History: Chronic pain no trauma Findings: There is no evidence for recent injury, bone destruction or synovial effusion. There is sli ght narrowing of lateral and medial compartments. The patella is in normal position. There is arterio sclerotic calcification involving the femoral and popliteal arteries. Impression: Mild osteoarthritis. No acute process identified. Reported By:
== END ==
LOC: RAD 17:35
PROVIDERS: ATTEND Nurse Practitioner Family
DX: M25.561 Pain in right knee (principal)
CPT/HCPCS: 73560

== ENCOUNTER → 2017-01-30 | Outpatient (CLI) | payer OTHER, MEDICAID ==
[2017-01-30 14:26] LABS: BILIRUBIN,URINE NEGATIVE (NEGATIVE); BLOOD/HEMOGLOBIN,URINE 1+ (NEGATIVE); GLUCOSE, URINE NEGATIVE (NEGATIVE); KETONES,URINE NEGATIVE (NEGATIVE); LEUKOCYTE ESTERASE ,URINE NEGATIVE (NEGATIVE); NITRITES,URINE NEGATIVE (NEGATIVE); PROTEIN,URINE 1+ (NEGATIVE); UROBILINOGEN,URINE NORMAL (NORMAL)
[2017-01-30 14:32] LABS: BASOPHILS % (AUTO) 1.1 % (0.2-1.0); EOSINOPHILS # (AUTO) 0.1 x10^3/uL (0.0-0.2); EOSINOPHILS % (AUTO) 3.2 % (0.9-2.9); HEMATOCRIT 36.3 % (42.0-54.0); HEMOGLOBIN 12.1 g/dL (13.5-18.0); LYMPHOCYTES # (AUTO) 1.3 X10^3/uL (1.3-2.9); LYMPHOCYTES % (AUTO) 32.5 % (21.0-51.0); MEAN CORPUSCULAR HEMOGLOBIN 26.9 pg (27.0-34.0); MEAN CORPUSCULAR HGB CONC 33.3 g/dL (33.0-35.0); MEAN CORPUSCULAR VOLUME 80.8 fL (80.0-100.0); MEAN PLATELET VOLUME 8.6 fL (7.4-11.0); MONOCYTES # (AUTO) 0.3 x10^3/uL (0.3-0.8); MONOCYTES % (AUTO) 7.1 % (0.0-13.0); NEUTROPHILS # (AUTO) 2.2 x10^3/uL (2.2-4.8); NEUTROPHILS % (AUTO) 56.1 % (42.0-75.0); PLATELET COUNT 201 X10^3/uL (150.0-450.0); RED BLOOD COUNT 4.49 X10^6/uL (4.7-6.0); RED CELL DISTRIBUTION WIDTH 15.1 % (11.6-16.5)
[2017-01-30 14:33] LABS: AMORPHOUS SEDIMENT,UR TRACE /HPF (NEGATIVE); APPEARANCE,URINE HAZY (CLEAR); BACTERIA,URINE TRACE /HPF (NEGATIVE); COLOR,URINE YELLOW (YELLOW); MUCUS,URINE MODERATE /HPF (NEGATIVE); SQUAMOUS EPITHELIAL CELL,UR NEGATIVE /HPF (NEGATIVE)
[2017-01-30 14:40] LABS: ALANINE AMINOTRANSFERASE 29 Units/L (12-78); ALBUMIN 4.3 g/dL (3.4-5.0); ALKALINE PHOSPHATASE 123 Units/L (46-116); ASPARTATE AMINO TRANSFERASE 21 Units/L (15-37); BLOOD UREA NITROGEN 16 mg/dL (7-18); CALCIUM 8.6 mg/dL (8.5-10.1); CARBON DIOXIDE 29.5 mmol/L (21-32); CHLORIDE 103 mmol/L (98-107); CREATININE 0.92 mg/dL (0.70-1.30); SODIUM 141 mmol/L (136-145); TOTAL PROTEIN 7.8 g/dL (6.4-8.2); eGFR BLACK RACES > 60 (>60); eGFR NON BLACK RACES > 60 (>60)
[2017-01-30 15:12] LABS: ERYTHROCYTE SEDIMENTATION RATE 11 MM/HOUR (0-15)
== END ==
LOC: LAB 13:14
PROVIDERS: ATTEND Orthopaedic Surgery
DX: Z01.818 Encounter for other preprocedural examination (principal); Z01.810 Encounter for preprocedural cardiovascular examination; Z01.811 Encounter for preprocedural respiratory examination; Z79.899 Other long term (current) drug therapy; Z79.01 Long term (current) use of anticoagulants; Z11.8 Encounter for screening for other infectious and parasitic diseases; M16.51 Unilateral post-traumatic osteoarthritis, right hip
CPT/HCPCS: 36415; 80053; 81001; 85025; 85610; 85652; 85730; 86140; 86850; 86900; 86901; 87640; 87641; 93005; 93010

== ENCOUNTER → 2017-02-25 | Outpatient (CLI) | payer OTHER, MEDICAID ==
--- NOTE | 2017-02-25 14:58 | RAD ---
Examination: Chest, PA and lateral views History: Preop hardware removal Comparison reference 03/12/2016 Findings: Continued normal heart size. The lungs are now clear. Previous right upper lobe infiltrate has cleared. There is no evidence for acute pulmonary or pleural lesion. Nonacute left rib fractures are incidentally observed. Impression: Interval clearing previous right upper lobe infiltrate. No acute chest abnormality now de monstrated. Reported By:
== END ==
LOC: LAB 11:17
PROVIDERS: ATTEND Orthopaedic Surgery
DX: Z01.818 Encounter for other preprocedural examination (principal); Z01.811 Encounter for preprocedural respiratory examination; M16.51 Unilateral post-traumatic osteoarthritis, right hip
CPT/HCPCS: 71046; 86850; 86900; 86901

== ENCOUNTER 2017-02-26 08:30 | Inpatient (IN) | payer OTHER, MEDICAID ==
[2017-03-03] MEDS ORDERED: D5 LR 1000 ML 1,000 ML IV ONE (08:55)
[2017-03-03] MEDS ORDERED: NS 100 ML IV 100 ML IV ONE (08:56)
[2017-03-03 09:17] VITALS: BMI 21.2
[2017-03-03] MEDS ORDERED: MARCAINE 0.25% INJ ONE (09:35)
[2017-03-03] MEDS ORDERED: XYLOCAINE 1% and EPINEPHRINE 1:100,000 ONE (09:35)
[2017-03-03] MEDS ORDERED: NS IRRIGATION 1000 ML 1,000 ML with BACITRACIN VIAL 50,000 UNT, POLYMYXIN B SULFATE 500... IR ONE ×9 (10:02→13:57)
[2017-03-03] MEDS ORDERED: NS IRRIGATION 3000 ML 3,000 ML with BACITRACIN VIAL 50,000 UNT, POLYMYXIN B SULFATE 500... IR ONE ×12 (10:03)
[2017-03-03] MEDS: BACTROBAN OINT ONE ×2 (10:04→12:11)
[2017-03-03] MEDS: ANCEF VIAL 1 GM ONE ×3 (10:04→11:20)
[2017-03-03] MEDS ORDERED: FENTANYL INJ 250 mcg ONE (11:27)
[2017-03-03] MEDS ORDERED: DILAUDID INJ ONE (11:27)
[2017-03-03] MEDS ORDERED: LR 1000 ML IV 1,000 ML IV ONE (12:32)
[2017-03-03] MEDS ORDERED: NS 500 ML IV 500 ML IV ONE (14:02)
[2017-03-03] MEDS ORDERED: QUELICIN (OR ANECTINE) ONE (15:41)
[2017-03-03] MEDS ORDERED: ZOFRAN INJ 4 MG VIAL ONE (15:41)
[2017-03-03] MEDS ORDERED: ROBINUL ONE (15:41)
[2017-03-03] MEDS ORDERED: DIPRIVAN VIAL ONE (15:41)
[2017-03-03] MEDS ORDERED: XYLOCAINE 2 % (PLAIN) ONE (15:41)
[2017-03-03] MEDS ORDERED: EPHEDRINE SULFATE INJ ONE (15:41)
[2017-03-03] MEDS ORDERED: SUPRANE IN ONE (15:41)
[2017-03-03] MEDS ORDERED: NORCURON INJ 10 MG VIAL ONE (15:41)
[2017-03-03] MEDS ORDERED: NEOSTIGMINE INJ ONE (15:41)
[2017-03-03] MEDS ORDERED: VERSED ONE (15:41)
[2017-03-03] MEDS ORDERED: PHENERGAN INJ 25 MG IVP PRN (16:02)
[2017-03-03] MEDS ORDERED: DILAUDID INJ IVP PRN (16:02)
[2017-03-03] MEDS ORDERED: ZOFRAN INJ 4 MG VIAL IVP PRN (16:02)
[2017-03-03] MEDS ORDERED: REGLAN INJ 10 MG VIAL IVP PRN (16:02)
[2017-03-03] MEDS ORDERED: BENADRYL INJ 50 MG VIAL IVP PRN (16:02)
--- NOTE | 2017-03-03 16:51 | RAD ---
Examination: Right hip, two views History: Postop Comparison reference 12/31/2016 Findings: Arthroplasty components are now present, related anatomically without evidence for displace ment or periprosthetic fracture. The expected postsurgical changes are noted in the overlying soft t issues. Impression: Interval performance right PADMA; no postoperative abnormality demonstrated. Reported By:
[2017-03-03] MEDS: MORPHINE SULFATE PCA 30 MG IV PRN (17:23)
[2017-03-03] MEDS ORDERED: NS 1000 ML 1,000 ML ONE (22:36)
[2017-03-04 05:40] LABS: BASOPHILS % (AUTO) 0.4 % (0.2-1.0); EOSINOPHILS # (AUTO) 0.1 x10^3/uL (0.0-0.2); EOSINOPHILS % (AUTO) 1.2 % (0.9-2.9); HEMOGLOBIN 10.3 g/dL (13.5-18.0); LYMPHOCYTES # (AUTO) 0.9 X10^3/uL (1.3-2.9); LYMPHOCYTES % (AUTO) 13.2 % (21.0-51.0); MEAN CORPUSCULAR HGB CONC 34.2 g/dL (33.0-35.0); MEAN CORPUSCULAR VOLUME 81.7 fL (80.0-100.0); MEAN PLATELET VOLUME 9.2 fL (7.4-11.0); MONOCYTES # (AUTO) 0.5 x10^3/uL (0.3-0.8); MONOCYTES % (AUTO) 6.9 % (0.0-13.0); NEUTROPHILS # (AUTO) 5.6 x10^3/uL (2.2-4.8); NEUTROPHILS % (AUTO) 78.3 % (42.0-75.0); PLATELET COUNT 165 X10^3/uL (150.0-450.0); RED BLOOD COUNT 3.68 X10^6/uL (4.7-6.0); RED CELL DISTRIBUTION WIDTH 14.7 % (11.6-16.5); WHITE BLOOD COUNT 7.1 X10^3/uL (3.6-10.0)
[2017-03-04 05:52] LABS: BLOOD UREA NITROGEN 9 mg/dL (7-18); CALCIUM 7.3 mg/dL (8.5-10.1); CARBON DIOXIDE 29.8 mmol/L (21-32); CHLORIDE 103 mmol/L (98-107); COR NA(FOR HYPERGLY) 137 mmol/L (136-145); CREATININE 0.83 mg/dL (0.70-1.30); SODIUM 137 mmol/L (136-145); eGFR BLACK RACES > 60 (>60); eGFR NON BLACK RACES > 60 (>60)
[2017-03-04] MEDS: LOVENOX INJ 30 MG SYR SC SCH (09:05)
[2017-03-04] MEDS: MORPHINE SULFATE PCA 30 MG IV PRN (10:52)
[2017-03-04] MEDS: DILANTIN CAP 100 MG EXT REL PO SCH ×4 (10:56→20:35)
[2017-03-04] MEDS: PHENOBARBITAL TAB 30 MG (32.4MG) PO SCH ×2 (10:57→20:35)
[2017-03-04] MEDS: ZANTAC PO SCH ×2 (10:57→20:35)
[2017-03-04] MEDS ORDERED: MORPHINE SULFATE INJ 4 MG IVP PRN (12:17)
[2017-03-04] MEDS ORDERED: MORPHINE SULFATE INJ 10 MG IVP PRN (13:38)
--- NOTE | 2017-03-04 14:12 | OR.GENERIC ---
Post-Op Note Generic - Post-Op Note Operative Report: PREOPERATIVE DIAGNOSIS: Right hip degenerative arthritis, secondary to acetabular fracture, protrusio POSTOPERATIVE DIAGNOSIS: RIGHT hip degenerative arthritis, secondary to a sternal fracture, protrusio PROCEDURE PERFORMED: RIGHT total hip arthroplasty ANESTHESIA: General. BLOOD LOSS: 500 cc. The patient was positioned with the left hip exposed on the pegboard. IMPLANT SPECIFICATION: Clarence Accloade femur 5 ADM 56 mm acetabular shell cluster, 28/52 insert, 46F Liner 28 mm metal head, + 4 GROSS INTRAOPERATIVE FINDINGS: Severe degenerative changes within the femoral head as well as the acetabulum. significant osteophytes seen in the anterior superior and posterior aspect of the acetabulum. Protrusio deformity which prevented dislocation of the head. HISTORY: This is a 61-year-old male with a history of RIGHT hip degenerative osteoarthritis secondary to a acetabular fracture. he had his acetabular fracture fixed many years ago now. He also had a RIGHT ankle and LEFT wrist and a jaw fracture which was extended during that injury. He's been dealing with the RIGHT hip pain for many years now. Because of the increased amount of pain as well as severe effect on his activities of daily living and uncontrollable pain with narcotic medication, the patient has elected to undergo the above-named procedure. All risks as well complications were discussed with the patient including but not limited to infection, scar, dislocation, need for further surgery, risk of anesthesia, deep vein thrombosis , and implant failure. The patient understood all these risks and was willing to continue further on with the procedure. PROCEDURE:. Patient was brought to the operating room. Spinal epidural was done. he got appropriate antibiotic. Henry catheter was inserted. he was positioned with peg board in a LEFT lateral position. An axillary roll was placed. All his bony prominences were well padded. At this time, the RIGHT hip and RIGHT lower extremity was then prepped and draped in the usual sterile fashion for this procedure. At this time, a posterior approach was then performed. A curvilinear incision placed over the posterior half of trochanter was placed. Dissection carried down through the subcutaneous tissue to expose the TFL and the distal part of the incision. Incision made in the TFL and The G max fibers split along. Charnley retractor applied. Fat pad was elevated with the Ray-Brody exposing the short external rotators. Inferior and superior sutures with heavy sutures placed in the rotators and the capsule. The short rotators with capsule were taken down with cautery to expose the hip. significant protrusio prevented the hip from dislocation so it was decided to proceed with the neck osteotomy in situ without dislocation. An neck osteotomy was completed with an oscillating saw. The femoral head was then removed. The acetabulum was exposed after an anterior capsulotomy was done. Retractors were placed anteriorly posteriorly and inferiorly. Acetabulum was found to be protrusio. A long-handle knife was used to cut through the remainder of the capsule and remove the glenoid labrum around the rim of the acetabulum. With better exposure of the acetabulum, we started reaming the acetabulum. We started with a size #44 and progressively reamed to a size #56. At the size #56 mm reamer, we obtained excellent bony bleeding with good remainder of bone stalk both anteriorly and posteriorly as well as superiorly within the acetabulum. the Floor was grafted with 30 cc of cancellous bone graft.A size 56 mm cup was then implanted with excellent approaches approximately 45 degrees of abduction and 10 to 15 degrees of anteversion dialed in. three screws were the placed within the superior table for better securing the acetabular cup. At this time , a plastic liner was then inserted for protection. The leg was flexed and abducted and rotated 90 to prepare the femur. A Rae retractor was used to retract the tensor fascia isa and femoral elevator was used to elevate the femur for better exposure and at this time, we began working on the femur. A rongeur was used to lateralize over the greater trochanter. A Box osteotome was used to remove the cancellous portion of the femoral neck. A Charnley awl was then used to cannulate through the proximal femoral canal.. At this time, we began broaching. We started with a size #0 and progressively worked up to a size #5 mm broach. Once the 5 mm broach was inserted in place, it was seated approximately 1 mm below the calcar. A calcar reamer was then placed and the calcar was reamed smoothly. A standard neck with + 4 as well as a 28 mm plastic head was then placed and a trial reduction was then performed. Once this was performed, the hip was taken to range of motion with external rotation, longitudinal traction as well as flexion and revealed good stability with no impingement or dislocation. At this time, we removed 5 mm broach and proceeded with implanting our polyethylene liner within the acetabulum. This was impacted and placed and checked to assure that it was well seated with no loosening. we then exposed the proximal femur one more time. We copiously irrigated within the canal and then suctioned it dry. At this time, a 5 mm porous proximal coated stem, a femoral component was then impacted in place. The ADM complement was assembled on the back table. The 28 mm zero neck length cobalt- chrome femoral head was then impacted in place and the So taper assured that this was well fixed . Next, the hip was then reduced within the acetabulum and again we checked range of motion as well as ligamentous stability with gentle traction, external rotation, as well as hip flexion. We were satisfied with components as well as the alignment of the components. Copious irrigation was then used to irrigate the wound. #1 Ethibond was then used to approximate the hip capsule. #1 Ethibond in interrupted fashion was used to approximate the vastus lateralis as well as the gluteus medius attachment over the partial gluteus medius attachment which was resected off the greater trochanter. Next, a #1 Ethibond was then used to approximate the tensor fascia isa with [id number] closure. A tight closure was performed. Since the patient did have a lot of subcutaneous fat, multiple #2-0 Vicryl sutures were then used to approximate the bed space and then #2-0 Vicryl for the subcutaneous skin. [place] were then used for skin closure. The patients hip was then cleansed. Sterile dressings consisting of Adaptic, 4 x 4, ABDs, and foam tape were then placed. A drain was placed prior to wound closure for postoperative drainage. After the dressing was applied, the patient was extubated safely and transferred to recovery in stable condition. Prognosis is good.
--- NOTE | 2017-03-04 14:38 | PCM.PROG ---
Progress Note - Progress Note for Day of Date: 03/04/17 (postoperative day 1) - Subjective Subjective: he is doing well. With the help of physical therapy he did get out of the bed and started walking. pain is well controlled. Dressing is clean and dry. vitals stable. Afebrile. Patient lying comfortably in the bed. plan 1. Transition to by mouth pain medications. 2. Continue physical therapy. 3. Regular wound check. 4. Continue anti-DVT prophylaxis. 5. Posterior hip precautions. 6. human services program specialist for planning and after discharge services - Past Medical Family Social History Allergies: Allergies No Known Drug Allergies Allergy (Verified 10/06/16 12:20) - Vital Signs and I&O's Vital Signs: Temperature 99.3 F Pulse Rate [Left Brachial] 57 Pulse Rate 62 Respiratory Rate 18 Blood Pressure [Left Arm] 110/56 Blood Pressure 110/74 O2 Sat by Pulse Oximetry 100 Intake and Output: Intake & Output 03/02/17 03/03/17 03/04/17 03/05/17 11:59 11:59 11:59 11:59 Intake Total 700 Output Total 8950 Balance -8250 - Physical Exam Mood Description: Calm Speech Pattern: Clear, Appropriate - Laboratory and Diagnostics Result Diagrams: 03/04/17 04:15 03/04/17 04:15 Labs: Laboratory WBC 7.1 X10^3/uL (3.6-10.0) 03/04/17 04:15 RBC 3.68 X10^6/uL (4.7-6.0) L 03/04/17 04:15 Hgb 10.3 g/dL (13.5-18.0) L 03/04/17 04:15 Hct 30.0 % (42.0-54.0) L 03/04/17 04:15 MCV 81.7 fL (80.0-100.0) 03/04/17 04:15 MCH 28.0 pg (27.0-34.0) 03/04/17 04:15 MCHC 34.2 g/dL (33.0-35.0) 03/04/17 04:15 RDW 14.7 % (11.6-16.5) 03/04/17 04:15 Plt Count 165 X10^3/uL (150.0-450.0) 03/04/17 04:15 MPV 9.2 fL (7.4-11.0) 03/04/17 04:15 Neut % 78.3 % (42.0-75.0) H 03/04/17 04:15 Lymph % 13.2 % (21.0-51.0) L 03/04/17 04:15 [place] % 6.9 % (0.0-13.0) 03/04/17 04:15 Eos % 1.2 % (0.9-2.9) 03/04/17 04:15 Baso % 0.4 % (0.2-1.0) 03/04/17 04:15 Neut # 5.6 x10^3/uL (2.2-4.8) H 03/04/17 04:15 Lymph # 0.9 X10^3/uL (1.3-2.9) L 03/04/17 04:15 [place] # 0.5 x10^3/uL (0.3-0.8) 03/04/17 04:15 Eos # 0.1 x10^3/uL (0.0-0.2) 03/04/17 04:15 Baso # 0.0 X10^3/uL (0.0-0.1) 03/04/17 04:15 Absolute Nucleated RBC 0.0 /100WBC 03/04/17 04:15 Sodium 137 mmol/L (136-145) 03/04/17 04:15 Corrected Sodium 137 mmol/L (136-145) 03/04/17 04:15 Potassium 4.1 mmol/L (3.5-5.1) 03/04/17 04:15 Chloride 103 mmol/L (98-107) 03/04/17 04:15 Carbon Dioxide 29.8 mmol/L (21-32) 03/04/17 04:15 BUN 9 mg/dL (7-18) 03/04/17 04:15 Creatinine 0.83 mg/dL (0.70-1.30) 03/04/17 04:15 Est GFR (MDRD) Af Amer > 60 (>60) 03/04/17 04:15 Est GFR (MDRD) Non-Af > 60 (>60) 03/04/17 04:15 Glucose 120 mg/dL (65-99) H 03/04/17 04:15 Calcium 7.3 mg/dL (8.5-10.1) L 03/04/17 04:15 Blood Type O POSITIVE 02/25/17 11:45 Antibody Screen Negative 02/25/17 11:45 Crossmatch See Detail 02/25/17 11:45 - Plan (1) History of total right hip arthroplasty Status: Acute Plan: plan 1. Transition to by mouth pain medications. 2. Continue physical therapy. 3. Regular wound check. 4. Continue anti-DVT prophylaxis. 5. Posterior hip precautions. 6. human services program specialist for planning and after discharge services
[2017-03-04] MEDS: PERCOCET TAB 5/325 MG PO PRN ×2 (16:34→20:32)
[2017-03-05] MEDS: PERCOCET TAB 5/325 MG PO PRN ×2 (01:26→18:06)
[2017-03-05 05:42] LABS: BASOPHILS % (AUTO) 0.4 % (0.2-1.0); EOSINOPHILS # (AUTO) 0.1 x10^3/uL (0.0-0.2); EOSINOPHILS % (AUTO) 0.8 % (0.9-2.9); HEMATOCRIT 26.7 % (42.0-54.0); HEMOGLOBIN 9.3 g/dL (13.5-18.0); LYMPHOCYTES # (AUTO) 0.9 X10^3/uL (1.3-2.9); LYMPHOCYTES % (AUTO) 10.4 % (21.0-51.0); MEAN CORPUSCULAR HEMOGLOBIN 28.3 pg (27.0-34.0); MEAN CORPUSCULAR HGB CONC 34.9 g/dL (33.0-35.0); MEAN CORPUSCULAR VOLUME 81.2 fL (80.0-100.0); MEAN PLATELET VOLUME 9.8 fL (7.4-11.0); MONOCYTES # (AUTO) 0.6 x10^3/uL (0.3-0.8); MONOCYTES % (AUTO) 6.5 % (0.0-13.0); NEUTROPHILS # (AUTO) 7.1 x10^3/uL (2.2-4.8); NEUTROPHILS % (AUTO) 81.9 % (42.0-75.0); PLATELET COUNT 136 X10^3/uL (150.0-450.0); RED BLOOD COUNT 3.29 X10^6/uL (4.7-6.0); RED CELL DISTRIBUTION WIDTH 14.5 % (11.6-16.5); WHITE BLOOD COUNT 8.6 X10^3/uL (3.6-10.0)
[2017-03-05 05:48] LABS: BLOOD UREA NITROGEN 9 mg/dL (7-18); CALCIUM 7.6 mg/dL (8.5-10.1); CARBON DIOXIDE 28.7 mmol/L (21-32); CHLORIDE 102 mmol/L (98-107); COR NA(FOR HYPERGLY) 137 mmol/L (136-145); CREATININE 0.88 mg/dL (0.70-1.30); SODIUM 137 mmol/L (136-145); eGFR BLACK RACES > 60 (>60); eGFR NON BLACK RACES > 60 (>60)
[2017-03-05] MEDS: LOVENOX INJ 30 MG SYR SC SCH (09:00)
[2017-03-05] MEDS: ZANTAC PO SCH ×2 (09:02→21:02)
[2017-03-05] MEDS: PHENOBARBITAL TAB 30 MG (32.4MG) PO SCH ×2 (09:02→21:02)
[2017-03-05] MEDS: DILANTIN CAP 100 MG EXT REL PO SCH ×4 (09:02→21:02)
[2017-03-05] MEDS: FLOMAX PO SCH (13:45)
--- NOTE | 2017-03-05 16:57 | RAD ---
History: Fever and cough Study: Portable AP chest Comparison: February 25 Findings: The lungs are clear and the heart and mediastinum are unremarkable. There is no edema or ef fusion or congestion demonstrated. Impression: No active cardiopulmonary disease Reported By:
[2017-03-05] MEDS ORDERED: MILK OF MAGNESIA PO PRN (22:56)
[2017-03-05] MEDS ORDERED: COLACE CAP 100 MG PO PRN (22:56)
[2017-03-06 01:05] LABS: BILIRUBIN,URINE NEGATIVE (NEGATIVE); BLOOD/HEMOGLOBIN,URINE NEGATIVE (NEGATIVE); GLUCOSE, URINE NEGATIVE (NEGATIVE); KETONES,URINE NEGATIVE (NEGATIVE); LEUKOCYTE ESTERASE ,URINE NEGATIVE (NEGATIVE); NITRITES,URINE NEGATIVE (NEGATIVE); PROTEIN,URINE 1+ (NEGATIVE); UROBILINOGEN,URINE NORMAL (NORMAL)
[2017-03-06 01:25] LABS: APPEARANCE,URINE CLEAR (CLEAR); BACTERIA,URINE NEGATIVE /HPF (NEGATIVE); COLOR,URINE YELLOW (YELLOW); RBC,URINE NONE SEEN /HPF (NEGATIVE); SQUAMOUS EPITHELIAL CELL,UR RARE /HPF (NEGATIVE)
[2017-03-06] MEDS: PERCOCET TAB 5/325 MG PO PRN (04:24)
[2017-03-06 05:46] LABS: BLOOD UREA NITROGEN 8 mg/dL (7-18); CARBON DIOXIDE 29.4 mmol/L (21-32); CHLORIDE 102 mmol/L (98-107); CREATININE 0.68 mg/dL (0.70-1.30); SODIUM 137 mmol/L (136-145); eGFR BLACK RACES > 60 (>60); eGFR NON BLACK RACES > 60 (>60)
[2017-03-06 06:12] LABS: BASOPHILS % (AUTO) 0.3 % (0.2-1.0); EOSINOPHILS # (AUTO) 0.1 x10^3/uL (0.0-0.2); EOSINOPHILS % (AUTO) 0.8 % (0.9-2.9); HEMATOCRIT 24.4 % (42.0-54.0); HEMOGLOBIN 8.7 g/dL (13.5-18.0); LYMPHOCYTES # (AUTO) 0.8 X10^3/uL (1.3-2.9); LYMPHOCYTES % (AUTO) 10.1 % (21.0-51.0); MEAN CORPUSCULAR HEMOGLOBIN 28.6 pg (27.0-34.0); MEAN CORPUSCULAR HGB CONC 35.6 g/dL (33.0-35.0); MEAN CORPUSCULAR VOLUME 80.4 fL (80.0-100.0); MEAN PLATELET VOLUME 9.4 fL (7.4-11.0); MONOCYTES # (AUTO) 0.6 x10^3/uL (0.3-0.8); MONOCYTES % (AUTO) 6.9 % (0.0-13.0); NEUTROPHILS # (AUTO) 6.7 x10^3/uL (2.2-4.8); NEUTROPHILS % (AUTO) 81.9 % (42.0-75.0); PLATELET COUNT 123 X10^3/uL (150.0-450.0); RED BLOOD COUNT 3.04 X10^6/uL (4.7-6.0); RED CELL DISTRIBUTION WIDTH 14.6 % (11.6-16.5); WHITE BLOOD COUNT 8.2 X10^3/uL (3.6-10.0)
[2017-03-06] MEDS ORDERED: POTASSIUM CHLORIDE LIQ 20 MEQ UDC PO PRN (06:15)
[2017-03-06] MEDS ORDERED: MAG-OX TAB PO PRN (06:15)
[2017-03-06] MEDS ORDERED: K-RIDER 10 MEQ/NS 100 ML 10 MEQ/100 ML BAG IV PRN (06:15)
[2017-03-06] MEDS ORDERED: POTASSIUM CHL 60 MEQ/NS 0.45% 500 ML IV PRN (06:15)
[2017-03-06] MEDS ORDERED: MAGNESIUM SULFATE 1 GM/100 mL PREMIX 1 GM/100 ML BAG IV PRN (06:15)
[2017-03-06] MEDS ORDERED: K-LYTE EFFERVESCENT PO PRN (06:15)
[2017-03-06] MEDS ORDERED: POTASSIUM CHL 40 MEQ/NS 0.45% 500 ML IV PRN (06:15)
[2017-03-06] MEDS ORDERED: K-LYTE EFFERVESCENT PO ONE (06:29)
[2017-03-06] MEDS: PHENOBARBITAL TAB 30 MG (32.4MG) PO SCH (08:47)
[2017-03-06] MEDS: FLOMAX PO SCH (08:47)
[2017-03-06] MEDS: ZANTAC PO SCH (08:47)
[2017-03-06] MEDS: LOVENOX INJ 30 MG SYR SC SCH (08:47)
[2017-03-06] MEDS: DILANTIN CAP 100 MG EXT REL PO SCH (08:47)
[2017-03-06] MEDS ORDERED: PriLOSEC PO SCH (09:00)
[2017-03-06 12:35] VITALS: BP 104/58
--- NOTE | 2017-03-06 13:08 | PCM.PROG ---
Progress Note - Progress Note for Day of Date: 03/05/17 (POD3) - Subjective Subjective: patient is doing very well. He is progressing very well at this time. Patient is able to walk independently with the help of a walker. Dressing was changed today and surgical incision is clean and dry. He is currently on anticoagulation.his pain is very well controlled with by mouth pain meds. His vitals are stable and he is afebrile.Patient lying comfortably in the bed.he has a home health set up. We'll plan on discharging him. plan. 1. Continue physical therapy. 2. Regular wound check. 3. Continue anti- DVT prophylaxis. 4. Posterior hip precautions. - Past Medical Family Social History Allergies: Allergies No Known Drug Allergies Allergy (Verified 10/06/16 12:20) - Vital Signs and I&O's Vital Signs: Temperature 99.7 F Pulse Rate [Left Brachial] 64 Pulse Rate 62 Respiratory Rate 18 Blood Pressure [Left Arm] 104/58 Blood Pressure 110/74 O2 Sat by Pulse Oximetry 99 Intake and Output: Intake & Output 03/04/17 03/05/17 03/06/17 03/07/17 11:59 11:59 11:59 11:59 Intake Total 700 2700 1550 Output Total 8950 1650 1125 Balance -8250 1050 425 - Physical Exam Mood Description: Calm Speech Pattern: Clear, Appropriate - Laboratory and Diagnostics Result Diagrams: 03/06/17 04:10 03/06/17 04:10 Labs: Laboratory WBC 8.2 X10^3/uL (3.6-10.0) 03/06/17 04:10 RBC 3.04 X10^6/uL (4.7-6.0) L 03/06/17 04:10 Hgb 8.7 g/dL (13.5-18.0) L 03/06/17 04:10 Hct 24.4 % (42.0-54.0) L 03/06/17 04:10 MCV 80.4 fL (80.0-100.0) 03/06/17 04:10 MCH 28.6 pg (27.0-34.0) 03/06/17 04:10 MCHC 35.6 g/dL (33.0-35.0) H 03/06/17 04:10 RDW 14.6 % (11.6-16.5) 03/06/17 04:10 Plt Count 123 X10^3/uL (150.0-450.0) L 03/06/17 04:10 MPV 9.4 fL (7.4-11.0) 03/06/17 04:10 Neut % 81.9 % (42.0-75.0) H 03/06/17 04:10 Lymph % 10.1 % (21.0-51.0) L 03/06/17 04:10 [place] % 6.9 % (0.0-13.0) 03/06/17 04:10 Eos % 0.8 % (0.9-2.9) L 03/06/17 04:10 Baso % 0.3 % (0.2-1.0) 03/06/17 04:10 Neut # 6.7 x10^3/uL (2.2-4.8) H 03/06/17 04:10 Lymph # 0.8 X10^3/uL (1.3-2.9) L 03/06/17 04:10 [place] # 0.6 x10^3/uL (0.3-0.8) 03/06/17 04:10 Eos # 0.1 x10^3/uL (0.0-0.2) 03/06/17 04:10 Baso # 0.0 X10^3/uL (0.0-0.1) 03/06/17 04:10 Absolute Nucleated RBC 0.0 /100WBC 03/06/17 04:10 Sodium 137 mmol/L (136-145) 03/06/17 04:10 Corrected Sodium TNP 03/06/17 04:10 Potassium 3.3 mmol/L (3.5-5.1) L 03/06/17 04:10 Chloride 102 mmol/L (98-107) 03/06/17 04:10 Carbon Dioxide 29.4 mmol/L (21-32) 03/06/17 04:10 BUN 8 mg/dL (7-18) 03/06/17 04:10 Creatinine 0.68 mg/dL (0.70-1.30) L 03/06/17 04:10 Est GFR (MDRD) Af Amer > 60 (>60) 03/06/17 04:10 Est GFR (MDRD) Non-Af > 60 (>60) 03/06/17 04:10 Glucose 110 mg/dL (65-99) H 03/06/17 04:10 Calcium 8.0 mg/dL (8.5-10.1) L 03/06/17 04:10 Magnesium 1.9 mg/dL (1.7-2.9) 03/06/17 04:10 Specimen Type Clean catch urine 03/06/17 00:32 Urine Color Yellow (YELLOW) 03/06/17 00:32 Urine Appearance Clear (CLEAR) 03/06/17 00:32 Urine pH 6.0 (5.0 - 8.0) 03/06/17 00:32 Ur Specific [place] 1.010 (1.000-1.030) 03/06/17 00:32 Urine Protein 1+ (NEGATIVE) 03/06/17 00:32 Urine Glucose (UA) Negative (NEGATIVE) 03/06/17 00:32 Urine Ketones Negative (NEGATIVE) 03/06/17 00:32 Urine Occult Blood Negative (NEGATIVE) 03/06/17 00:32 Urine Nitrite Negative (NEGATIVE) 03/06/17 00:32 Urine Bilirubin Negative (NEGATIVE) 03/06/17 00:32 Urine Urobilinogen Normal (NORMAL) 03/06/17 00:32 Ur Leukocyte Esterase Negative (NEGATIVE) 03/06/17 00:32 Urine RBC None seen /HPF (NEGATIVE) 03/06/17 00:32 Urine WBC None seen /HPF (NEGATIVE) 03/06/17 00:32 Ur Squamous Epith Cells Rare /HPF (NEGATIVE) 03/06/17 00:32 Urine Bacteria Negative /HPF (NEGATIVE) 03/06/17 00:32 Ur Culture Indicated? No/not indicated 03/06/17 00:32 Phenytoin 19.4 ug/mL (10-20) 03/04/17 04:15 Influenza Type A (PCR) Negative (NEGATIVE) 03/05/17 19:27 Influenza Type B (PCR) Negative (NEGATIVE) 03/05/17 19:27 Blood Type O POSITIVE 02/25/17 11:45 Antibody Screen Negative 02/25/17 11:45 Crossmatch See Detail 02/25/17 11:45 - Plan (1) History of total right hip arthroplasty Status: Acute Plan: plan. 1 Continue physical therapy. 2. Regular wound check. 3. Continue anti-DVT prophylaxis. 4. Posterior hip precautions. 5. follow-up as advised. 6. professional services consultant for planning and after discharge services
--- NOTE | 2017-03-06 21:53 | PCM.PROG ---
Progress Note - Progress Note for Day of Date: 03/05/17 - Subjective Subjective: WAS ADMITTED ON 03/03/2017. HE IS STATUS POST RIGHT TOTAL HIP REPLACMENT BY . TODAY, HE IS ALERT AND ORIENTED, LYING IN BED ON MORNING ROUNDS. HE CONTINUES TO COMPLAIN OF PAIN TO RIGHT HIP AND GENERALIZED WEAKNESS. ON EXAMINATION, HEART IS REGULAR IN RATE AND RHYTHM. LUNG SOUNDS ARE DIMINISHED THROUGHOUT. ABDOMEN IS ROUND, SOFT, AND NON-TENDER WITH NORMAL BOWEL SOUNDS NOTED IN ALL QUADRANTS. RIGHT HIP IS NOTED WITH A SURGICAL DRESSING. DRESSING IS DRY AND INTACT WITH NO SIGNS OR SX INFECTION NOTED TO SITE. STAFF REPORTS THAT PATIENT HAS HAD AN ELEVATED TEMPERATURE THROUGHOUT THE NIGHT. TEMPERATURE AT MIDNIGHT WAS 101.3. HIS VITALS THIS MORNING ARE 98.8-62-18-97%- 107/62. LABS WERE OBTAINED. ABNORMAL LAB VALUES INCLUDE THE FOLLOWING: RBC 3.29 , HGB 9.3, HCT 26.7, PLT COUNT 136, GLUCOSE 110, CALCIUM 8.0. TODAY, WE PLAN TO OBTAIN BLOOD CULTURES, INFLUENZA SWAB, URINALYSIS, AND CHEST XRAY TO RULE OUT SOURCES OF FEVER. PHYSICAL THERAPY CONTINUES TO AMBULATE PATIENT AND ASSIST IN REHABILITATION EXERCISES. THEY REPORT THAT PATIENT IS AMBULATING WELL WITH ASSITANCE OF WALKER. AFTER DISCHARGE, PATIENT WILL GO HOME WITH HOME HEALTH SERVICES. TODAY, WE WILL CONTINUE WITH CURRENT PLAN OF CARE. WE PLAN TO FOLLOW UP WITH AM LABS AND CONTINUE TO MONITOR PATIENT. - Past Medical Family Social History Past Med/Fam/Surg Hx: No changes since H&P Allergies: Allergies No Known Drug Allergies Allergy (Verified 10/06/16 12:20) - Review of Systems ROS: No change since H&P - Vital Signs and I&O's Vital Signs: Temperature 99.7 F Pulse Rate [Left Brachial] 64 Pulse Rate 62 Respiratory Rate 18 Blood Pressure [Left Arm] 104/58 Blood Pressure 110/74 O2 Sat by Pulse Oximetry 99 Intake and Output: Intake & Output 03/04/17 03/05/17 03/06/17 03/07/17 11:59 11:59 11:59 11:59 Intake Total 700 2700 1550 450 Output Total 8950 1650 1125 Balance -8250 1050 425 450 - Physical Exam Oriented: Normal Eyes: Normal Ear: Normal Nose: Normal Throat: Normal Respiratory: Generalized, Diminished Cardiovascular: Normal : Normal Auscultation: Bowel Sounds: Normal Palpation: Normal Skin: Wound (RIGHT HIP SURGICAL WOUND ) Musculoskeletal: Right, Hip, Tender, Instability Psychiatric: Normal Mood Description: Calm Affect: Normal Speech Pattern: Clear, Appropriate - Laboratory and Diagnostics Result Diagrams: 03/06/17 04:10 03/06/17 04:10 Labs: Laboratory WBC 8.2 X10^3/uL (3.6-10.0) 03/06/17 04:10 RBC 3.04 X10^6/uL (4.7-6.0) L 03/06/17 04:10 Hgb 8.7 g/dL (13.5-18.0) L 03/06/17 04:10 Hct 24.4 % (42.0-54.0) L 03/06/17 04:10 MCV 80.4 fL (80.0-100.0) 03/06/17 04:10 MCH 28.6 pg (27.0-34.0) 03/06/17 04:10 MCHC 35.6 g/dL (33.0-35.0) H 03/06/17 04:10 RDW 14.6 % (11.6-16.5) 03/06/17 04:10 Plt Count 123 X10^3/uL (150.0-450.0) L 03/06/17 04:10 MPV 9.4 fL (7.4-11.0) 03/06/17 04:10 Neut % 81.9 % (42.0-75.0) H 03/06/17 04:10 Lymph % 10.1 % (21.0-51.0) L 03/06/17 04:10 [place] % 6.9 % (0.0-13.0) 03/06/17 04:10 Eos % 0.8 % (0.9-2.9) L 03/06/17 04:10 Baso % 0.3 % (0.2-1.0) 03/06/17 04:10 Neut # 6.7 x10^3/uL (2.2-4.8) H 03/06/17 04:10 Lymph # 0.8 X10^3/uL (1.3-2.9) L 03/06/17 04:10 [place] # 0.6 x10^3/uL (0.3-0.8) 03/06/17 04:10 Eos # 0.1 x10^3/uL (0.0-0.2) 03/06/17 04:10 Baso # 0.0 X10^3/uL (0.0-0.1) 03/06/17 04:10 Absolute Nucleated RBC 0.0 /100WBC 03/06/17 04:10 Sodium 137 mmol/L (136-145) 03/06/17 04:10 Corrected Sodium TNP 03/06/17 04:10 Potassium 3.3 mmol/L (3.5-5.1) L 03/06/17 04:10 Chloride 102 mmol/L (98-107) 03/06/17 04:10 Carbon Dioxide 29.4 mmol/L (21-32) 03/06/17 04:10 BUN 8 mg/dL (7-18) 03/06/17 04:10 Creatinine 0.68 mg/dL (0.70-1.30) L 03/06/17 04:10 Est GFR (MDRD) Af Amer > 60 (>60) 03/06/17 04:10 Est GFR (MDRD) Non-Af > 60 (>60) 03/06/17 04:10 Glucose 110 mg/dL (65-99) H 03/06/17 04:10 Calcium 8.0 mg/dL (8.5-10.1) L 03/06/17 04:10 Magnesium 1.9 mg/dL (1.7-2.9) 03/06/17 04:10 Specimen Type Clean catch urine 03/06/17 00:32 Urine Color Yellow (YELLOW) 03/06/17 00:32 Urine Appearance Clear (CLEAR) 03/06/17 00:32 Urine pH 6.0 (5.0 - 8.0) 03/06/17 00:32 Ur Specific [place] 1.010 (1.000-1.030) 03/06/17 00:32 Urine Protein 1+ (NEGATIVE) 03/06/17 00:32 Urine Glucose (UA) Negative (NEGATIVE) 03/06/17 00:32 Urine Ketones Negative (NEGATIVE) 03/06/17 00:32 Urine Occult Blood Negative (NEGATIVE) 03/06/17 00:32 Urine Nitrite Negative (NEGATIVE) 03/06/17 00:32 Urine Bilirubin Negative (NEGATIVE) 03/06/17 00:32 Urine Urobilinogen Normal (NORMAL) 03/06/17 00:32 Ur Leukocyte Esterase Negative (NEGATIVE) 03/06/17 00:32 Urine RBC None seen /HPF (NEGATIVE) 03/06/17 00:32 Urine WBC None seen /HPF (NEGATIVE) 03/06/17 00:32 Ur Squamous Epith Cells Rare /HPF (NEGATIVE) 03/06/17 00:32 Urine Bacteria Negative /HPF (NEGATIVE) 03/06/17 00:32 Ur Culture Indicated? No/not indicated 03/06/17 00:32 Phenytoin 19.4 ug/mL (10-20) 03/04/17 04:15 Influenza Type A (PCR) Negative (NEGATIVE) 03/05/17 19:27 Influenza Type B (PCR) Negative (NEGATIVE) 03/05/17 19:27 Blood Type O POSITIVE 02/25/17 11:45 Antibody Screen Negative 02/25/17 11:45 Crossmatch See Detail 02/25/17 11:45 - Plan (1) History of total right hip arthroplasty Status: Acute Plan: 1 Continue physical therapy. 2. Regular wound check. 3. Continue anti -DVT prophylaxis. 4. Posterior hip precautions. 5. follow-up as advised. 6. respiratory services manager for planning and after discharge services
== END 2017-03-06 16:30 | disposition home health service (06) | DRG 470 ==
LOC: MED/SURG 03-03 08:14
PROVIDERS: ADMIT Orthopaedic Surgery; ATTEND Internal Medicine
PROC: 30233N1 Transfusion of Nonautologous Red Blood Cells into Peripheral Vein, Percutaneous Approach (ICD-10-PCS; 2017-03-03)
PROC: 30233N1 Transfusion of Nonautologous Red Blood Cells into Peripheral Vein, Percutaneous Approach (ICD-10-PCS; 2017-03-03)
PROC: 0SR902A Replacement of Right Hip Joint with Metal on Polyethylene Synthetic Substitute, Uncemented, Open Approach (ICD-10-PCS; principal; 2017-03-03 08:30)
DX: M16.51 Unilateral post-traumatic osteoarthritis, right hip (principal); M25.551 Pain in right hip; K21.9 Gastro-esophageal reflux disease without esophagitis; M13.89 Other specified arthritis, multiple sites; G40.802 Other epilepsy, not intractable, without status epilepticus; R26.89 Other abnormalities of gait and mobility
CPT/HCPCS: 36415; 36430; 71045; 73501; 80048; 80185; 81001; 83735; 85025; 86850; 86900; 86901; 86922; 87040; 87502; 94640; 94762; 97535; A4216; A4222; P9016; S0020; J0330; J0690; J1170; J1650; J2001; J2250; J2271; J2405; J2710; J3010; J3490; J7120

== ENCOUNTER 2017-04-23 12:03 | Observation (INO) | payer OTHER, MEDICAID ==
--- NOTE | 2017-04-23 12:11 | DR.GENAD ---
HPI - HPI Comment HPI Comment: KNOWN SEIZURE PATIENT WHO IS CONFUSE THIS AM. FAMILY CALL EMS TO BRING HIM TO THE ED. HE TAKES DILANTIN FOR SEIZURE. FAMILY CONCERN HE MAY HAVE TAKEN MORE OF HIS DILANTIN AND IS TOXIC FROM IT. PATIENT HAVE NOT HAD SEIZURE THIS AM. MEDICATION MAY HAVE BEING TAKEN ACCIDENTALLY. PATIENT IS CONFUSE IN ED. - Complaint/Symptoms Chief Complaint Doctors Comments: AMS. - Nurses notes reviewed Nurses Notes Review: Yes - Source History Provided: Patient, EMS - Mode of Arrival Mode of Arrival: Stretcher - Timing Came on: Suddenly - Duration Duration: Constant Duration: Hours - Severity Severity: Moderate PMH - PMH Past Medical History: Seizures Past Surgical History: Yes Surgical History: Ortho Surgery - Family History Family Medical History: [place], Coronary Artery Disease, Heart Failure, Hypertension - Social History Do you use any recreational Drugs:: No ROS - Review of Systems Constitutional: Weakness, Fatigue. negative: Chills, Diaphoresis, Fever Eyes: Other (NO NYSTAGMUS.). negative: Eye Pain, Discharge ENTM: No Symptoms Reported Respiratoy: No Symptoms Reported Cardiovascular: No Symptoms Reported Gastrointestinal/Abdominal: No Symptoms Reported Genitourinary: No Symptoms Reported Neurological: Weakness, Problems Walking, Speech Problem Musculoskeletal: Other (NO TWICHING) Integumentary: No Symptoms Reported Hematologic/Lymphatic: No Symptoms Reported Endocrine: No Symptoms Reported All Other Systems: Reviewed and Negative PE - Vital Signs Vitals: Temperature 97.4 F Pulse Rate 61 Respiratory Rate 20 Blood Pressure [Left Arm] 104/58 Blood Pressure 136/87 O2 Sat by Pulse Oximetry 99 - General Limitations: Altered Mental Status General Appearance: Alert (SLEEPY BUT AROUSABLE.) - Head Head Exam: Normal Inspection - Eyes Eye exam: PERRL. negative: Scleral Icterus, Conjunctival Injection, Nystagmus, Periorbital Swelling, Periorbital Tenderness - ENT ENT Exam: Normal External Ear Exam External Ear Exam: Normal External Inspection TM/Canal Exam: Bilateral Normal Nose Exam: Normal Nose Exam Mouth Exam: Normal Inspection Throat Exam: Normal Inspection - Neck Neck Exam: Trachea Midline - Chest Chest Inspection: Symmetric Chest Wall Rise - Respiratory Respiratory Exam: Normal Lung Sounds Bilat Respiratory Exam: Bilateral Clear to Auscultation - Cardiovascular Cardiovascular Exam: Regular Rate, Normal Rhythm, Normal Heart Sounds - Abdominal Exam Abdominal Exam: Normal Bowel Sounds, Soft. negative: Tenderness - Extremities Extremities Exam: Normal Inspection - Back Back Exam: Normal Inspection - Neurologic Neurological Exam: Alert. negative: Oriented X3 (DISORIENTED.) - Psychiatric Psychiatric Exam: Other (SLEEPY) - Skin Skin Exam: Normal Color MDM - Additional Information Additional Information Obtained From: Family - Differential Diagnosis Differential Diagnosis: DILANTIN TOXICITY, CVA, TIA, SEIZURE Course - Treatment Treatment: SEE ORDERS. - Consultation Consultation Comments: DISCUSS PATIENT WITH DR. DOMINGUEZ. HE WILL ADMIT PATIENT. - Education/Counseling Education/Counseling: Family ([facility]), Education Educated On: Diagnosis ROR - Labs Reviewed Result Diagrams: 04/23/17 12:35 04/23/17 12:35 Laboratory: WBC 5.3 X10^3/uL (3.6-10.0) 04/23/17 12:35 RBC 4.43 X10^6/uL (4.7-6.0) L 04/23/17 12:35 Hgb 11.7 g/dL (13.5-18.0) L 04/23/17 12:35 Hct 35.3 % (42.0-54.0) L 04/23/17 12:35 MCV 79.6 fL (80.0-100.0) L 04/23/17 12:35 MCH 26.4 pg (27.0-34.0) L 04/23/17 12:35 MCHC 33.2 g/dL (33.0-35.0) 04/23/17 12:35 RDW 14.9 % (11.6-16.5) 04/23/17 12:35 Plt Count 239 X10^3/uL (150.0-450.0) 04/23/17 12:35 MPV 8.2 fL (7.4-11.0) 04/23/17 12:35 Neut % 64.3 % (42.0-75.0) 04/23/17 12:35 Lymph % 24.4 % (21.0-51.0) 04/23/17 12:35 [place] % 6.3 % (0.0-13.0) 04/23/17 12:35 Eos % 4.0 % (0.9-2.9) H 04/23/17 12:35 Baso % 1.0 % (0.2-1.0) 04/23/17 12:35 Neut # 3.4 x10^3/uL (2.2-4.8) 04/23/17 12:35 Lymph # 1.3 X10^3/uL (1.3-2.9) 04/23/17 12:35 [place] # 0.3 x10^3/uL (0.3-0.8) 04/23/17 12:35 Eos # 0.2 x10^3/uL (0.0-0.2) 04/23/17 12:35 Baso # 0.1 X10^3/uL (0.0-0.1) 04/23/17 12:35 Absolute Nucleated RBC 0.0 /100WBC 04/23/17 12:35 Sodium 142 mmol/L (136-145) 04/23/17 12:35 Corrected Sodium TNP 04/23/17 12:35 Potassium 3.9 mmol/L (3.5-5.1) 04/23/17 12:35 Chloride 105 mmol/L (98-107) 04/23/17 12:35 Carbon Dioxide 28.4 mmol/L (21-32) 04/23/17 12:35 BUN 10 mg/dL (7-18) 04/23/17 12:35 Creatinine 0.96 mg/dL (0.70-1.30) 04/23/17 12:35 Est GFR (MDRD) Af Amer > 60 (>60) 04/23/17 12:35 Est GFR (MDRD) Non-Af > 60 (>60) 04/23/17 12:35 Glucose 93 mg/dL (65-99) 04/23/17 12:35 Calcium 8.4 mg/dL (8.5-10.1) L 04/23/17 12:35 Corrected Calcium TNP 04/23/17 12:35 Total Bilirubin 0.10 mg/dL (0.2-1.0) L 04/23/17 12:35 AST 12 Units/L (15-37) L 04/23/17 12:35 ALT 19 Units/L (12-78) 04/23/17 12:35 Alkaline Phosphatase 140 Units/L (46-116) H 04/23/17 12:35 Total Protein 7.6 g/dL (6.4-8.2) 04/23/17 12:35 Albumin 3.5 g/dL (3.4-5.0) 04/23/17 12:35 Globulin 4.1 g/dL (2.5-4.5) 04/23/17 12:35 Albumin/Globulin Ratio 0.9 Ratio (1.1-2.1) L 04/23/17 12:35 Phenytoin 34.7 ug/mL (10-20) H* 04/23/17 12:35 - XRAY XRAY Interpreted by: Radiologist XRAY Findings: REPORT DISCUSS WITH FAMILY. - EKG Rhythm: NSR (EKG NOTED) - Diagnosis Discharge Problem: Dilantin toxicity Qualifiers: Encounter type: initial encounter Injury intent: accidental or unintentional Qualified Code(s): T42.0X1A - Poisoning by hydantoin derivatives, accidental ( unintentional), initial encounter Altered mental state Qualifiers: Altered mental status type: transient alteration of awareness Qualified Code(s) : R40.4 - Transient alteration of awareness - Discharge Plan Disposition: 09 ADMITTED INPATIENT Condition: Stable - Follow ups/Referrals - Instructions
[2017-04-23 12:43] LABS: BASOPHILS # (AUTO) 0.1 X10^3/uL (0.0-0.1); EOSINOPHILS # (AUTO) 0.2 x10^3/uL (0.0-0.2); HEMATOCRIT 35.3 % (42.0-54.0); HEMOGLOBIN 11.7 g/dL (13.5-18.0); LYMPHOCYTES # (AUTO) 1.3 X10^3/uL (1.3-2.9); LYMPHOCYTES % (AUTO) 24.4 % (21.0-51.0); MEAN CORPUSCULAR HEMOGLOBIN 26.4 pg (27.0-34.0); MEAN CORPUSCULAR HGB CONC 33.2 g/dL (33.0-35.0); MEAN CORPUSCULAR VOLUME 79.6 fL (80.0-100.0); MEAN PLATELET VOLUME 8.2 fL (7.4-11.0); MONOCYTES # (AUTO) 0.3 x10^3/uL (0.3-0.8); MONOCYTES % (AUTO) 6.3 % (0.0-13.0); NEUTROPHILS # (AUTO) 3.4 x10^3/uL (2.2-4.8); NEUTROPHILS % (AUTO) 64.3 % (42.0-75.0); PLATELET COUNT 239 X10^3/uL (150.0-450.0); RED BLOOD COUNT 4.43 X10^6/uL (4.7-6.0); RED CELL DISTRIBUTION WIDTH 14.9 % (11.6-16.5); WHITE BLOOD COUNT 5.3 X10^3/uL (3.6-10.0)
--- NOTE | 2017-04-23 12:59 | CT ---
HISTORY: Altered mental status Study: CT head without contrast Comparison: 10/30/2015 Technique: Axial noncontrast images with coronal and sagittal reformats. Dose reduction procedures we re used with mA/kv adjusted for body size. Findings: The ventricles are normal in size shape and position. There are no areas of abnormal attenuation to s uggest recent or remote CVA, hemorrhage, mass lesion, or extra-axial fluid collection. The calvarium is intact. The visualized sinuses are clear. IMPRESSION: No significant intracranial abnormality identified Reported By:
[2017-04-23 13:01] LABS: ALANINE AMINOTRANSFERASE 19 Units/L (12-78); ALBUMIN 3.5 g/dL (3.4-5.0); ALKALINE PHOSPHATASE 140 Units/L (46-116); ASPARTATE AMINO TRANSFERASE 12 Units/L (15-37); BLOOD UREA NITROGEN 10 mg/dL (7-18); CALCIUM 8.4 mg/dL (8.5-10.1); CARBON DIOXIDE 28.4 mmol/L (21-32); CHLORIDE 105 mmol/L (98-107); CREATININE 0.96 mg/dL (0.70-1.30); SODIUM 142 mmol/L (136-145); TOTAL PROTEIN 7.6 g/dL (6.4-8.2); eGFR BLACK RACES > 60 (>60); eGFR NON BLACK RACES > 60 (>60)
[2017-04-23] MEDS ORDERED: NS 1000 ML 1,000 ML ONE (13:48)
[2017-04-23] MEDS: NS 1000 ML 1,000 ML IV SCH ×2 (14:04→17:13)
[2017-04-23 14:14] LABS: CKMB % 0.8 % (<4); CREATINE KINASE 132 Units/L (39-308); CREATINE KINASE MB < 1.0 ng/mL (0-4.0); TROPONIN I < 0.02 ng/mL (0-1.5)
--- NOTE | 2017-04-23 14:19 | RAD ---
HISTORY: 61-year-old male with altered mental status. Study: Frontal view of the chest. Comparison: Chest radiograph 03/05/2017 Findings: The trachea is midline. The cardiac silhouette is stably enlarged with chronic prominence of the int erstitium and perihilar lung markings. The lungs are clear without focal consolidation, effusion or pneumothorax. Soft tissues are unremarkable. Chronic deformities right shoulder. IMPRESSION: 1. No acute cardiopulmonary disease. Reported By:
[2017-04-23 15:20] LABS: BILIRUBIN,URINE NEGATIVE (NEGATIVE); BLOOD/HEMOGLOBIN,URINE NEGATIVE (NEGATIVE); GLUCOSE, URINE NEGATIVE (NEGATIVE); KETONES,URINE NEGATIVE (NEGATIVE); LEUKOCYTE ESTERASE ,URINE NEGATIVE (NEGATIVE); NITRITES,URINE NEGATIVE (NEGATIVE); PROTEIN,URINE NEGATIVE (NEGATIVE); UROBILINOGEN,URINE NORMAL (NORMAL)
[2017-04-23 15:31] LABS: APPEARANCE,URINE CLEAR (CLEAR); BACTERIA,URINE NEGATIVE /HPF (NEGATIVE); COLOR,URINE YELLOW (YELLOW); RBC,URINE 0-2 /HPF (NONE SEEN); SQUAMOUS EPITHELIAL CELL,UR NEGATIVE /HPF (NEGATIVE)
[2017-04-23 16:03] VITALS: BMI 21.2
[2017-04-23 18:05] VITALS: BP 143/72
== END 2017-04-23 18:45 | disposition left against medical advice (07) | DRG 884 ==
LOC: ER 12:05 → INTOOBSV 14:24 → ICU 14:24
PROVIDERS: ADMIT Internal Medicine; ATTEND Internal Medicine
DX: R40.4 Transient alteration of awareness (principal); T42.0X1A Poisoning by hydantoin derivatives, accidental (unintentional), initial encounter; R94.31 Abnormal electrocardiogram [ECG] [EKG]
CPT/HCPCS: 36415; 70450; 71045; 80053; 80185; 80307; 81001; 82550; 82553; 83735; 84484; 85025; 85610; 85730; 93005; 93010; 96365; 96374; 99284; 99285; A4222; G0378; G0434

== ENCOUNTER 2017-04-29 21:04 | Emergency (ER) | payer OTHER, MEDICAID ==
[2017-04-29 21:10] VITALS: BMI 22.0
--- NOTE | 2017-04-29 21:43 | DR.GENAD ---
HPI - PCP Primary Care Physician: JOHN PAUL - HPI Comment HPI Comment: PATIENT ON PHENOBAB AND DILANTIN FOR SEIZURE DISORDER. TAKING MEDICATION BUT STILL HAVING LIGHT SEIZURE. DENIES FEVER OR HEADACHE. - Complaint/Symptoms Chief Complaint Doctors Comments: LIGHT SEIZURES AT HOME ALL WEEK. DILATIN TOXICITY RECENTLY. Chief Complaint:: PT STATES" I BEEN HAVING LIGHT SEIZURES ALL WEEK I SHOULD HAVE STAYED BUT I JUST LEFT THE HOSPITAL" - Nurses notes reviewed Nurses Notes Review: Yes - Source History Provided: Patient - Mode of Arrival Mode of Arrival: Ambulatory - Timing Onset of Chief Complaint: 04/24/17 Came on: Suddenly - Duration Duration: Constant Duration: Hours - Severity Severity: Moderate PMH - PMH Past Medical History: Yes Past Medical History: Seizures Past Surgical History: Yes Surgical History: Ortho Surgery - Family History History of Family Medical Conditions: Yes Family Medical History: [place], Coronary Artery Disease, Heart Failure, Hypertension - Social History Type of Tobacco Use: Cigarettes Does any household member use tobacco: Yes Alcohol Use: None Do you use any recreational Drugs:: No Lives With: Family Lives Where: Home - infectious screening In the last 2 months have you had wt loss of >10#?: NO Have you had fever, night sweats or hemotysis?: No Have you traveled outside the country in the last 6 months?: No ROS - Review of Systems Constitutional: No Symptoms Reported Eyes: No Symptoms Reported ENTM: No Symptoms Reported Respiratoy: No Symptoms Reported Cardiovascular: No Symptoms Reported Gastrointestinal/Abdominal: No Symptoms Reported Genitourinary: No Symptoms Reported Neurological: No Symptoms Reported Musculoskeletal: No Symptoms Reported Integumentary: No Symptoms Reported Hematologic/Lymphatic: No Symptoms Reported Endocrine: No Symptoms Reported All Other Systems: Reviewed and Negative PE - Vital Signs Vitals: Temperature 98.2 F Pulse Rate [Left Brachial] 61 Pulse Rate 88 Respiratory Rate 18 Blood Pressure [Right Arm] 143/72 Blood Pressure [Left Arm] 111/75 Blood Pressure 101/72 O2 Sat by Pulse Oximetry 100 - General Limitations: No Limitations General Appearance: Alert - Head Head Exam: Normal Inspection - Eyes Eye exam: Normal Appearance - ENT ENT Exam: Normal External Ear Exam External Ear Exam: Normal External Inspection TM/Canal Exam: Bilateral Normal Nose Exam: Normal Nose Exam Mouth Exam: Normal Inspection Throat Exam: Normal Inspection - Neck Neck Exam: Normal Inspection - Chest Chest Inspection: Symmetric Chest Wall Rise - Respiratory Respiratory Exam: Normal Lung Sounds Bilat Respiratory Exam: Bilateral Clear to Auscultation - Cardiovascular Cardiovascular Exam: Regular Rate, Normal Rhythm, Normal Heart Sounds - Abdominal Exam Abdominal Exam: Normal Bowel Sounds, Soft. negative: Tenderness - Extremities Extremities Exam: Normal Inspection - Back Back Exam: Normal Inspection - Neurologic Neurological Exam: Alert, Oriented X3 - Psychiatric Psychiatric Exam: Normal Affect, Normal Mood - Skin Skin Exam: Normal Color MDM - Differential Diagnosis Differential Diagnosis: SEIZURES, SEIZURE DISORDER. Course - Treatment Treatment: SEE ORDERS. - Education/Counseling Education/Counseling: Patient, Education Educated On: Diagnosis, Needs for Follow Up ROR - Labs Reviewed Laboratory Results Reviewed?: Yes Result Diagrams: 04/29/17 21:55 04/29/17 21:55 Laboratory: WBC 5.7 X10^3/uL (3.6-10.0) 04/29/17 21:55 RBC 4.41 X10^6/uL (4.7-6.0) L 04/29/17 21:55 Hgb 11.6 g/dL (13.5-18.0) L 04/29/17 21:55 Hct 34.2 % (42.0-54.0) L 04/29/17 21:55 MCV 77.5 fL (80.0-100.0) L 04/29/17 21:55 MCH 26.3 pg (27.0-34.0) L 04/29/17 21:55 MCHC 34.0 g/dL (33.0-35.0) 04/29/17 21:55 RDW 14.8 % (11.6-16.5) 04/29/17 21:55 Plt Count 202 X10^3/uL (150.0-450.0) 04/29/17 21:55 MPV 8.5 fL (7.4-11.0) 04/29/17 21:55 Neut % 60.5 % (42.0-75.0) 04/29/17 21:55 Lymph % 26.5 % (21.0-51.0) 04/29/17 21:55 [place] % 8.1 % (0.0-13.0) 04/29/17 21:55 Eos % 3.9 % (0.9-2.9) H 04/29/17 21:55 Baso % 1.0 % (0.2-1.0) 04/29/17 21:55 Neut # 3.5 x10^3/uL (2.2-4.8) 04/29/17 21:55 Lymph # 1.5 X10^3/uL (1.3-2.9) 04/29/17 21:55 [place] # 0.5 x10^3/uL (0.3-0.8) 04/29/17 21:55 Eos # 0.2 x10^3/uL (0.0-0.2) 04/29/17 21:55 Baso # 0.1 X10^3/uL (0.0-0.1) 04/29/17 21:55 Absolute Nucleated RBC 0.1 /100WBC 04/29/17 21:55 Sodium 139 mmol/L (136-145) 04/29/17 21:55 Corrected Sodium TNP 04/29/17 21:55 Potassium 4.3 mmol/L (3.5-5.1) 04/29/17 21:55 Chloride 101 mmol/L (98-107) 04/29/17 21:55 Carbon Dioxide 29.4 mmol/L (21-32) 04/29/17 21:55 BUN 14 mg/dL (7-18) 04/29/17 21:55 Creatinine 0.91 mg/dL (0.70-1.30) 04/29/17 21:55 Est GFR (MDRD) Af Amer > 60 (>60) 04/29/17 21:55 Est GFR (MDRD) Non-Af > 60 (>60) 04/29/17 21:55 Glucose 82 mg/dL (65-99) 04/29/17 21:55 Calcium 8.1 mg/dL (8.5-10.1) L 04/29/17 21:55 Corrected Calcium TNP 04/29/17 21:55 Magnesium 2.1 mg/dL (1.7-2.9) 04/29/17 21:55 Total Bilirubin 0.10 mg/dL (0.2-1.0) L 04/29/17 21:55 AST 15 Units/L (15-37) 04/29/17 21:55 ALT 20 Units/L (12-78) 03/06/18 21:55 Alkaline Phosphatase 133 Units/L (46-116) H 04/29/17 21:55 Total Protein 7.6 g/dL (6.4-8.2) 04/29/17 21:55 Albumin 3.4 g/dL (3.4-5.0) 04/29/17 21:55 Globulin 4.2 g/dL (2.5-4.5) 04/29/17 21:55 Albumin/Globulin Ratio 0.8 Ratio (1.1-2.1) L 04/29/17 21:55 Specimen Type Clean catch urine 04/29/17 21:57 Urine Color Yellow (YELLOW) 04/29/17 21:57 Urine Appearance Clear (CLEAR) 04/29/17 21:57 Urine pH 6.0 (5.0 - 8.0) 04/29/17 21:57 Ur Specific [place] 1.015 (1.000-1.030) 04/29/17 21:57 Urine Protein Negative (NEGATIVE) 04/29/17 21:57 Urine Glucose (UA) Negative (NEGATIVE) 04/29/17 21:57 Urine Ketones Negative (NEGATIVE) 04/29/17 21:57 Urine Occult Blood 1+ (NEGATIVE) 04/29/17 21:57 Urine Nitrite Negative (NEGATIVE) 04/29/17 21:57 Urine Bilirubin Negative (NEGATIVE) 04/29/17 21:57 Urine Urobilinogen 1+ (NORMAL) 04/29/17 21:57 Ur Leukocyte Esterase Negative (NEGATIVE) 04/29/17 21:57 Urine RBC 2-3 /HPF (NONE SEEN) 04/29/17 21:57 Urine WBC 0-1 /HPF (NONE SEEN) 04/29/17 21:57 Ur Squamous Epith Cells Rare /HPF (NEGATIVE) 04/29/17 21:57 Urine Bacteria Trace /HPF (NEGATIVE) 04/29/17 21:57 Urine Mucus Few /HPF (NEGATIVE) 04/29/17 21:57 Ur Culture Indicated? No/not indicated 04/29/17 21:57 Urine Opiates Screen Negative (NEG=<300) 04/29/17 21:57 Urine Methadone Screen Negative (NEG=<300) 04/29/17 21:57 Ur Barbiturates Screen Positive (NEG=<200) 04/29/17 21:57 Phenytoin 6.5 ug/mL (10-20) L 04/29/17 21:55 Ur Phencyclidine Scrn Negative (NEG=<25) 04/29/17 21:57 Ur Amphetamines Screen Negative (NEG=<1000) 04/29/17 21:57 Phenobarbital 17.5 ug/mL (15-40) 04/29/17 21:55 U Benzodiazepines Scrn Negative (NEG=<200) 04/29/17 21:57 Urine Cocaine Screen Negative (NEG=<300) 04/29/17 21:57 U Marijuana (THC) Screen Negative (NEG=<50) 04/29/17 21:57 - Diagnosis Discharge Problem: Seizure, Seizure disorder, Dilantin level too low - Discharge Plan Disposition: 01 HOME, SELF-CARE Condition: Stable - Follow ups/Referrals Follow ups/Referrals: NFD,None [Primary Care Provider] - 1 day MICHAEL AGUILAR [STAFF PHYSICIAN] - 04/30/17 - Instructions Instructions: Seizure, Adult, [id number] Additional Instructions: RETURN TO ED IF WORSE. CONTINUE DILANTIN AT HOME TOMORROW NIGHT.
[2017-04-29 22:03] LABS: BASOPHILS # (AUTO) 0.1 X10^3/uL (0.0-0.1); EOSINOPHILS # (AUTO) 0.2 x10^3/uL (0.0-0.2); EOSINOPHILS % (AUTO) 3.9 % (0.9-2.9); HEMATOCRIT 34.2 % (42.0-54.0); HEMOGLOBIN 11.6 g/dL (13.5-18.0); LYMPHOCYTES # (AUTO) 1.5 X10^3/uL (1.3-2.9); LYMPHOCYTES % (AUTO) 26.5 % (21.0-51.0); MEAN CORPUSCULAR HEMOGLOBIN 26.3 pg (27.0-34.0); MEAN CORPUSCULAR VOLUME 77.5 fL (80.0-100.0); MEAN PLATELET VOLUME 8.5 fL (7.4-11.0); MONOCYTES # (AUTO) 0.5 x10^3/uL (0.3-0.8); MONOCYTES % (AUTO) 8.1 % (0.0-13.0); NEUTROPHILS # (AUTO) 3.5 x10^3/uL (2.2-4.8); NEUTROPHILS % (AUTO) 60.5 % (42.0-75.0); PLATELET COUNT 202 X10^3/uL (150.0-450.0); RED BLOOD COUNT 4.41 X10^6/uL (4.7-6.0); RED CELL DISTRIBUTION WIDTH 14.8 % (11.6-16.5); WHITE BLOOD COUNT 5.7 X10^3/uL (3.6-10.0)
[2017-04-29 22:14] LABS: ALANINE AMINOTRANSFERASE 20 Units/L (12-78); ALBUMIN 3.4 g/dL (3.4-5.0); ALKALINE PHOSPHATASE 133 Units/L (46-116); ASPARTATE AMINO TRANSFERASE 15 Units/L (15-37); BLOOD UREA NITROGEN 14 mg/dL (7-18); CALCIUM 8.1 mg/dL (8.5-10.1); CARBON DIOXIDE 29.4 mmol/L (21-32); CHLORIDE 101 mmol/L (98-107); CREATININE 0.91 mg/dL (0.70-1.30); MAGNESIUM 2.1 mg/dL (1.7-2.9); SODIUM 139 mmol/L (136-145); TOTAL PROTEIN 7.6 g/dL (6.4-8.2); eGFR BLACK RACES > 60 (>60); eGFR NON BLACK RACES > 60 (>60)
[2017-04-29 22:19] LABS: BILIRUBIN,URINE NEGATIVE (NEGATIVE); BLOOD/HEMOGLOBIN,URINE 1+ (NEGATIVE); GLUCOSE, URINE NEGATIVE (NEGATIVE); KETONES,URINE NEGATIVE (NEGATIVE); LEUKOCYTE ESTERASE ,URINE NEGATIVE (NEGATIVE); NITRITES,URINE NEGATIVE (NEGATIVE); PROTEIN,URINE NEGATIVE (NEGATIVE); UROBILINOGEN,URINE 1+ (NORMAL)
[2017-04-29 22:30] LABS: APPEARANCE,URINE CLEAR (CLEAR); BACTERIA,URINE TRACE /HPF (NEGATIVE); COLOR,URINE YELLOW (YELLOW); MUCUS,URINE FEW /HPF (NEGATIVE); SQUAMOUS EPITHELIAL CELL,UR RARE /HPF (NEGATIVE)
[2017-04-29] MEDS ORDERED: CEREBYX INJ IVP ONE (22:52)
[2017-04-29] MEDS ORDERED: NS 100 ML IV 100 ML IV ONE (23:09)
[2017-04-29] MEDS ORDERED: CEREBYX INJ ONE (23:10)
[2017-04-30 00:22] VITALS: BP 111/75
== END 2017-04-30 00:23 | disposition home or self-care (01) ==
LOC: ER 21:21
DX: G40.909 Epilepsy, unspecified, not intractable, without status epilepticus (principal); R89.2 Abnormal level of other drugs, medicaments and biological substances in specimens from other organs, systems and tissues
CPT/HCPCS: 36415; 80053; 80184; 80185; 80307; 81001; 83735; 85025; 96365; 96374; 99282; 99283; A4222; S0078; G0434

== ENCOUNTER 2017-05-24 11:14 | Emergency (ER) | payer OTHER, MEDICAID ==
[2017-05-24 11:18] VITALS: BP 114/82; BMI 21.2
--- NOTE | 2017-05-24 11:32 | DR.SEIZA ---
HPI - Time Seen Time seen: 11:30 - Primary Care Physician Primary Care Physician: PANDA WANGP - Complaints Chief Complaint Doctors Comments: Patient presents with complaint of having light seizures all week. He has not seen his primary care physician. he takes dilantin and phenobarbital. He has not seen his primary care physician. He has not seen a neurologist. Patient states that he has been having little light seizures all week. Chief Complaint:: PT. STATES HE HAS BEEN HAVING "LIGHT SEIZURES" ALL WEEK. HE STATES HE DECREASED HIS DILANTIN ABOUT A WEEK AGO AND STARTED TAKING IT TWICE A DAY INSTEAD OF THREE TIMES A DAY. - Source History Provided: Patient - Mode of Arrival Mode of Arrival: Ambulatory - Timing Onset of Chief Complaint: 05/19/17 PMH - PMH Past Medical History: Yes Past Medical History: Seizures Past Surgical History: Yes Surgical History: Ortho Surgery - Family History History of Family Medical Conditions: Yes Family Medical History: [place], Coronary Artery Disease, Heart Failure, Hypertension - Social History Does patient currently use any type of tobacco product: No Have you used tobacco products in the last 12 months: No Type of Tobacco Use: None Does any household member use tobacco: No Alcohol Use: None Do you use any recreational Drugs:: No Lives With: Alone Lives Where: Home - infectious screening In the last 2 months have you had wt loss of >10#?: NO Have you had fever, night sweats or hemotysis?: No Have you traveled outside the country in the last 6 months?: No Isolation: Standard ROS - Review of Systems Eyes: No Symptoms Reported ENTM: No Symptoms Reported Respiratoy: No Symptoms Reported Cardiovascular: No Symptoms Reported Gastrointestinal/Abdominal: No Symptoms Reported Genitourinary: No Symptoms Reported Neurological: No Symptoms Reported Musculoskeletal: No Symptoms Reported Integumentary: No Symptoms Reported, See HPI Hematologic/Lymphatic: No Symptoms Reported Endocrine: No Symptoms Reported Psychiatric: No Symptoms Reported All Other Systems: Reviewed and Negative PE - Vital Signs Vitals: Temperature 97.0 F Pulse Rate 80 Respiratory Rate 17 Blood Pressure [Right Arm] 143/72 Blood Pressure [Left Arm] 111/75 Blood Pressure 114/82 O2 Sat by Pulse Oximetry 100 - General Limitations: No Limitations General Appearance: Alert - Head Head Exam: Normal Inspection, Atraumatic - Eyes Eye exam: Normal Appearance, PERRL, EOMI Eyelids: Normal Inspection: Bilateral Pupils: Regular, Round: Bilateral Sclera/Conjunctival: Normal Inspection: Bilateral Anterior Chamber: Normal Inspection: Bilateral - ENT ENT Exam: Normal Exam Mouth Exam: Normal Inspection - Neck Neck Exam: Normal Inspection, Full ROM - Chest Chest Inspection: Normal Inspection - Respiratory Respiratory Exam: Normal Lung Sounds Bilat Respiratory Exam: Bilateral Clear to Auscultation - Cardiovascular Cardiovascular Exam: Regular Rate, Normal Rhythm - Abdominal Exam Abdominal Exam: Normal Inspection, Normal Bowel Sounds Abdominal Tenderness: negative: RUQ, RLQ, LUQ, LLQ, Epigastrium, Suprapubic, Diffuse, Mild, Moderate, Severe, Other - Extremities Extremities Exam: Normal Inspection, Full ROM - Back Back Exam: Normal Inspection - Neurologic Neurological Exam: Alert, Oriented X3, CN II-XII Intact Cranial Nerve Exam: EOM Function (II, III, IV, ): Normal Motor Strength - LUE: 3/5 - Psychiatric Psychiatric Exam: Normal Affect, Normal Mood - Skin Skin Exam: Warm, Dry, Intact Course - Education/Counseling Educated On: Diagnosis, Needs for Follow Up ROR - Labs Reviewed Laboratory: Phenytoin 3.2 ug/mL (10-20) L 05/24/17 11:38 Phenobarbital 20.0 ug/mL (15-40) 05/24/17 11:38 - Diagnosis Discharge Problem: Seizure disorder, Subtherapeutic serum dilantin level - Discharge Plan Condition: Stable - Follow ups/Referrals Follow ups/Referrals: MILAGRO ABDALLA [Primary Care Provider] - 3 days - Instructions
[2017-05-24] MEDS ORDERED: DILANTIN CAP 100 MG EXT REL PO ONE ×2 (12:07→12:11)
== END 2017-05-24 12:21 | disposition left against medical advice (07) ==
LOC: ER 11:19
DX: G40.909 Epilepsy, unspecified, not intractable, without status epilepticus (principal); R89.2 Abnormal level of other drugs, medicaments and biological substances in specimens from other organs, systems and tissues
CPT/HCPCS: 36415; 80184; 80185; 99282

== ENCOUNTER → 2017-06-19 | Outpatient (CLI) | payer OTHER, MEDICAID ==
[2017-05-24 11:18] VITALS: BP 114/82
[~2017-06-19] MED LIST: NS 100 ML IV 100 ML IV ONE
[2017-06-19 09:14] LABS: CREATININE 0.96 mg/dL (0.70-1.30)
--- NOTE | 2017-06-19 11:44 | CT ---
HISTORY: Headache. Visual changes. Study: CT brain with and without IV contrast. Comparison: 04/23/2017. Technique: Multiple axial images of the brain were obtained from the skull base to the vertex both prior to and after the administration of IV contrast. Findings: No acute intraparenchymal hemorrhage or mass can be identified. No alteration in the attenuation of t he brain parenchyma can be identified to suggest acute or subacute ischemic change. There is no abnor mal enhancement on postcontrast imaging. No extra-axial fluid collections are seen. The ventricul ar system is symmetric and nondilated. There are postsurgical changes of the left orbit. The extracr anial structures are otherwise grossly unremarkable. IMPRESSION: No acute intracranial abnormality or concerning change compared with 04/23/2017. If symptoms persist, then MR of the brain may be of further diagnostic benefit. Reported By:
== END ==
LOC: RAD 08:50
PROVIDERS: ATTEND Nurse Practitioner Family
DX: R51 Headache (principal); R42 Dizziness and giddiness; H05.222 Edema of left orbit; H53.8 Other visual disturbances
CPT/HCPCS: 36415; 70460; 82565; 84520; A4222

== ENCOUNTER 2023-08-25 01:55 | Observation (INO) ==
[2023-08-25 02:55] LABS: BILIRUBIN,URINE NEGATIVE (NEGATIVE); BLOOD/HEMOGLOBIN,URINE NEGATIVE (NEGATIVE); GLUCOSE, URINE NEGATIVE (NEGATIVE); KETONES,URINE NEGATIVE (NEGATIVE); LEUKOCYTE ESTERASE ,URINE NEGATIVE (NEGATIVE); NITRITES,URINE NEGATIVE (NEGATIVE); PROTEIN,URINE NEGATIVE (NEGATIVE); UROBILINOGEN,URINE NORMAL (NORMAL)
[2023-08-25 02:56] LABS: APPEARANCE,URINE CLEAR (CLEAR); COLOR,URINE YELLOW (YELLOW)
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
[2023-08-25] MEDS: NS 1,000 ML IV 1,000 ML IV ONE (05:38)
[2023-08-25] MEDS: PEPCID 20 MG VIAL IVP ONE (05:39)
[2023-08-25] MEDS: BENTYL I.M. INJ 10 MG IM ONE (05:39)
[2023-08-25 05:48] LABS: BASOPHILS # (AUTO) 0.1 X10^3/uL (0.0-0.1); BASOPHILS % (AUTO) 0.8 % (0.2-1.0); EOSINOPHILS # (AUTO) 0.1 x10^3/uL (0.0-0.2); EOSINOPHILS % (AUTO) 0.9 % (0.9-2.9); HEMATOCRIT 20.2 % (42.0-54.0); LYMPHOCYTES # (AUTO) 3.1 X10^3/uL (1.3-2.9); LYMPHOCYTES % (AUTO) 39.2 % (21.0-51.0); MEAN CORPUSCULAR HEMOGLOBIN 18.8 pg (27.0-34.0); MEAN CORPUSCULAR VOLUME 58.9 fL (80.0-100.0); MEAN PLATELET VOLUME 8.4 fL (7.4-11.0); MONOCYTES # (AUTO) 0.5 x10^3/uL (0.3-0.8); MONOCYTES % (AUTO) 5.7 % (0.0-13.0); NEUTROPHILS # (AUTO) 4.2 x10^3/uL (2.2-4.8); NEUTROPHILS % (AUTO) 53.4 % (42.0-75.0); PLATELET COUNT 274 X10^3/uL (150.0-450.0); RED BLOOD COUNT 3.42 X10^6/uL (4.7-6.0); RED CELL DISTRIBUTION WIDTH 26.8 % (11.6-16.5); WHITE BLOOD COUNT 7.9 X10^3/uL (3.6-10.0)
[2023-08-25 05:53] LABS: ALANINE AMINOTRANSFERASE 25 Units/L (12-78); ALBUMIN 4.1 g/dL (3.4-5.0); ALKALINE PHOSPHATASE 87 Units/L (46-116); AMYLASE 108 Units/L (25-115); ASPARTATE AMINO TRANSFERASE 19 Units/L (15-37); BLOOD UREA NITROGEN 13 mg/dL (7-18); CALCIUM 9.1 mg/dL (8.5-10.1); CARBON DIOXIDE 23.1 mmol/L (21-32); CHLORIDE 102 mmol/L (98-107); GLUCOSE 92 mg/dL (65-99); LIPASE 42 Units/L (16-77); POTASSIUM 4.1 mmol/L (3.5-5.1); SODIUM 135 mmol/L (136-145); TOTAL PROTEIN 8.2 g/dL (6.4-8.2); eGFR NON BLACK RACES > 60 (>60)
[2023-08-25 05:57] LABS: HEMOGLOBIN 6.4 g/dL (13.5-18.0)
[2023-08-25 05:59] LABS: ANISOCYTOSIS 3+; HYPOCHROMASIA 3+; MICROCYTOSIS 3+; PLATELET MORPHOLOGY COMMENT NORMAL (NORMAL); SCHISTOCYTES SLIGHT; TARGET CELLS 2+
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
[2023-08-25 08:40] LABS: HEMATOCRIT 18.9 % (42.0-54.0)
[2023-08-25] MEDS: PROTONIX INJ 40 MG VIAL IVP ONE (08:48)
[2023-08-25] MEDS: OMNIPAQUE 350 mg/mL 100 mL BTL 100 ML ONE (09:44)
[2023-08-25 10:29] VITALS: BMI 18.9
[2023-08-25] MEDS: NS 500 ML IV 500 ML IV ONE (10:31)
[2023-08-25 11:14] LABS: RETICULOCYTE % 1.74 % (0.8-2.2)
[2023-08-25] MEDS ORDERED: DILANTIN CAP 100 MG EXT REL PO SCH (13:00)
[2023-08-25] MEDS: DILANTIN CAP 100 MG EXT REL PO SCH (13:49)
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
[2023-08-25 17:37] LABS: HEMOGLOBIN 8.8 g/dL (13.5-18.0)
[2023-08-25 17:41] LABS: HEMATOCRIT 27.4 % (42.0-54.0)
[2023-08-25] MEDS: PHENOBARBITAL TAB 30 MG (32.4MG) PO SCH (20:16)
[2023-08-26 05:21] LABS: BASOPHILS # (AUTO) 0.1 X10^3/uL (0.0-0.1); BASOPHILS % (AUTO) 1.2 % (0.2-1.0); EOSINOPHILS # (AUTO) 0.1 x10^3/uL (0.0-0.2); EOSINOPHILS % (AUTO) 1.3 % (0.9-2.9); HEMATOCRIT 24.9 % (42.0-54.0); HEMOGLOBIN 8.1 g/dL (13.5-18.0); LYMPHOCYTES # (AUTO) 2.4 X10^3/uL (1.3-2.9); LYMPHOCYTES % (AUTO) 45.9 % (21.0-51.0); MEAN CORPUSCULAR HGB CONC 32.3 g/dL (33.0-35.0); MEAN PLATELET VOLUME 8.4 fL (7.4-11.0); MONOCYTES # (AUTO) 0.3 x10^3/uL (0.3-0.8); MONOCYTES % (AUTO) 5.4 % (0.0-13.0); NEUTROPHILS # (AUTO) 2.4 x10^3/uL (2.2-4.8); NEUTROPHILS % (AUTO) 46.2 % (42.0-75.0); PLATELET COUNT 241 X10^3/uL (150.0-450.0); RED BLOOD COUNT 3.84 X10^6/uL (4.7-6.0); RED CELL DISTRIBUTION WIDTH 31.5 % (11.6-16.5); WHITE BLOOD COUNT 5.3 X10^3/uL (3.6-10.0)
[2023-08-26 05:30] LABS: ALANINE AMINOTRANSFERASE 20 Units/L (12-78); ALBUMIN 3.6 g/dL (3.4-5.0); ALKALINE PHOSPHATASE 80 Units/L (46-116); ASPARTATE AMINO TRANSFERASE 18 Units/L (15-37); BLOOD UREA NITROGEN 7 mg/dL (7-18); CALCIUM 8.2 mg/dL (8.5-10.1); CARBON DIOXIDE 26.7 mmol/L (21-32); CHLORIDE 105 mmol/L (98-107); CREATININE 0.77 mg/dL (0.70-1.30); GLUCOSE 90 mg/dL (65-99); POTASSIUM 4.3 mmol/L (3.5-5.1); SODIUM 142 mmol/L (136-145); TOTAL PROTEIN 7.3 g/dL (6.4-8.2); eGFR NON BLACK RACES > 60 (>60)
[2023-08-26 05:52] LABS: ANISOCYTOSIS 3+; HYPOCHROMASIA 2+; MICROCYTOSIS 1+; PLATELET MORPHOLOGY COMMENT NORMAL (NORMAL); SCHISTOCYTES SLIGHT; TARGET CELLS 1+
--- NOTE | 2023-08-26 08:48 | RAD ---
EXAM:CHEST, 1 VIEWHISTORY:SOB, ANEMIA;COMPARISON:CT chest 09/11/2022FINDINGS:The lungs may be hyperinflated. But I see no evidence for pneumonia or pleural effusion.Cardiomegaly is present.The bones are unremarkable.EKG leads are noted.IMPRESSION:1. Hyperinflation2. CardiomegalyTHIS IS AN ELECTRONICALLY VERIFIED FINAL REPORT08/26/2023 8:45 AM - Electronically signed by Damien Bustillos MD
[2023-08-26] MEDS ORDERED: PROTONIX INJ 40 MG VIAL IVP SCH (09:00)
[2023-08-26] MEDS: NICOTINE PATCH TD SCH (09:05)
[2023-08-26] MEDS: PROTONIX INJ 40 MG VIAL IVP SCH (09:05)
[2023-08-26] MEDS: INJECTAFER 750 MG in NS 250 ML IV 250 ML IV NR (10:15)
[2023-08-26] MEDS: SUPREP BOWEL PREP KIT PO SCH (15:09)
[2023-08-26 19:20] LABS: CRYPTOSPORIDIUM PARVUM ANTIGEN NEGATIVE (NEGATIVE); GIARDIA LAMBLIA ANTIGEN NEGATIVE (NEGATIVE)
[2023-08-27 00:10] VITALS: TEMP 98.2
[2023-08-27 05:00] LABS: BASOPHILS # (AUTO) 0.1 X10^3/uL (0.0-0.1); BASOPHILS % (AUTO) 1.7 % (0.2-1.0); EOSINOPHILS # (AUTO) 0.1 x10^3/uL (0.0-0.2); EOSINOPHILS % (AUTO) 2.5 % (0.9-2.9); HEMATOCRIT 24.5 % (42.0-54.0); LYMPHOCYTES # (AUTO) 1.1 X10^3/uL (1.3-2.9); LYMPHOCYTES % (AUTO) 21.8 % (21.0-51.0); MEAN CORPUSCULAR HEMOGLOBIN 21.3 pg (27.0-34.0); MEAN CORPUSCULAR HGB CONC 32.5 g/dL (33.0-35.0); MEAN CORPUSCULAR VOLUME 65.4 fL (80.0-100.0); MEAN PLATELET VOLUME 8.1 fL (7.4-11.0); MONOCYTES # (AUTO) 0.5 x10^3/uL (0.3-0.8); MONOCYTES % (AUTO) 9.1 % (0.0-13.0); NEUTROPHILS # (AUTO) 3.3 x10^3/uL (2.2-4.8); NEUTROPHILS % (AUTO) 64.9 % (42.0-75.0); PLATELET COUNT 220 X10^3/uL (150.0-450.0); RED BLOOD COUNT 3.74 X10^6/uL (4.7-6.0); RED CELL DISTRIBUTION WIDTH 30.8 % (11.6-16.5)
[2023-08-27 05:19] LABS: ALANINE AMINOTRANSFERASE 23 Units/L (12-78); ALBUMIN 3.6 g/dL (3.4-5.0); ALKALINE PHOSPHATASE 79 Units/L (46-116); ASPARTATE AMINO TRANSFERASE 22 Units/L (15-37); BLOOD UREA NITROGEN 8 mg/dL (7-18); CALCIUM 8.4 mg/dL (8.5-10.1); CARBON DIOXIDE 27.6 mmol/L (21-32); CHLORIDE 108 mmol/L (98-107); CREATININE 0.81 mg/dL (0.70-1.30); GLUCOSE 101 mg/dL (65-99); SODIUM 143 mmol/L (136-145); TOTAL PROTEIN 7.2 g/dL (6.4-8.2); eGFR NON BLACK RACES > 60 (>60)
[2023-08-27 05:27] LABS: ANISOCYTOSIS 3+; HYPOCHROMASIA 2+; MICROCYTOSIS 1+; PLATELET MORPHOLOGY COMMENT NORMAL (NORMAL); SCHISTOCYTES SLIGHT; TARGET CELLS 1+
--- NOTE | 2023-08-27 07:21 | RAD ---
EXAM: CHEST, 1 VIEW HISTORY: rectal bleeding, anemia; COMPARISON: 08/25/2023 FINDINGS: The trachea is midline. The cardiac silhouette is unremarkable . The lungs are clear without focal infiltrate or effusion. The bony thorax is unremarkable. IMPRESSION: No acute cardiopulmonary disease. THIS IS AN ELECTRONICALLY VERIFIED FINAL REPORT 08/27/2023 7:18 AM - Electronically signed by All Bhagat MD
[2023-08-27 08:51] VITALS: RESP 20
[2023-08-27] MEDS: NS 500 ML IV 500 ML IV ONE (10:11)
[2023-08-27] MEDS: DIPRIVAN VIAL 20 ML ONE ×2 (10:11→10:35)
[2023-08-27] MEDS: EPHEDRINE SULFATE INJ ONE (10:28)
[2023-08-27 12:28] VITALS: BP 103/57; PULSE 68; O2SAT 97
[2023-08-27] MEDS: CARAFATE PO SCH (14:01)
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
== END 2023-08-27 14:45 | disposition home or self-care (01) ==
LOC: ICU 01:55 → ER 01:55 → ICU 09:49
PROVIDERS: ADMIT Internal Medicine; ATTEND Internal Medicine
DX: G40.802 Other epilepsy, not intractable, without status epilepticus; R63.4 Abnormal weight loss; K57.31 Diverticulosis of large intestine without perforation or abscess with bleeding; Z68.1 Body mass index [BMI] 19.9 or less, adult; D64.89 Other specified anemias; K64.1 Second degree hemorrhoids; K44.9 Diaphragmatic hernia without obstruction or gangrene; K25.2 Acute gastric ulcer with both hemorrhage and perforation; R06.02 Shortness of breath; I10 Essential (primary) hypertension; R97.0 Elevated carcinoembryonic antigen [CEA]